=== PATIENT | male | born 1955 | race Caucasian/White ===

== ENCOUNTER 2020-02-24 21:40 | Inpatient (IN) ==
[2020-02-24] MEDS ORDERED: Ondansetron 4 MG/2 ML VIAL IVP PRN (23:59)
[2020-02-24] MEDS ORDERED: Naloxone 0.4 MG/ML INJ IVP PRN (23:59)
[2020-02-24] MEDS ORDERED: Acetaminophen 325 MG TABLET PO PRN (23:59)
[2020-02-25] MEDS ORDERED: D5% in Water 1,000 ML IVC PRN (00:53)
[2020-02-25] MEDS ORDERED: *HR* Dextrose 50 % in Water (Vial) 50 ML VIAL IVP PRN (00:53)
[2020-02-25] MEDS ORDERED: Dextrose Gel 15 GM/37.5 ML TUBE PO PRN ×2 (00:53)
[2020-02-25] MEDS: Insulin LISPRO 300 UNITS/3 ML VIAL SUBQ SCH ×4 (02:27→20:26)
[2020-02-25] MEDS ORDERED: 0.9 % Sodium Chloride 1,000 ML IVC ONE (05:46)
[2020-02-25] MEDS ORDERED: Insulin LISPRO 300 UNITS/3 ML VIAL SUBQ SCH (06:00)
[2020-02-25] MEDS: Cefepime HCl 2,000 MG in Water for inj. (sterile) 20 ML IVP SCH ×2 (06:34→17:55)
[2020-02-25 07:23] LABS: Eosinophils # 0.1 K/mcL (0.0-0.6); Eosinophils % 2.6 %; Hematocrit 25.9 % (37.5-50.1); Hemoglobin 7.8 g/dL (12.9-16.9); Immature Granulocytes % 0.6 % (0-4); Lymphocytes # 0.6 K/mcL (0.6-4.6); Lymphocytes % 17.2 %; Mean Corpuscular HGB Conc 30.1 g/dL (31.6-35.5); Mean Corpuscular Hemoglobin 23.9 pg (28.0-33.3); Mean Corpuscular Volume 79.2 fL (83.0-100.0); Mean Platelet Volume 9.4 fL (9.4-12.4); Monocytes # 0.4 K/mcL (0.0-1.3); Monocytes % 10.2 %; Neutrophils # 2.4 K/mcL (1.6-8.9); Platelet Count 159 K/mcL (140-400); Red Blood Count 3.27 M/mcL (4.19-5.50); Red Cell Distribution Width 14.9 % (11.5-14.5); Segmented Neutrophils % 69.4 %; White Blood Count 3.4 K/mcL (4.3-11.1)
[2020-02-25 07:41] LABS: Albumin 2.7 g/dL (3.5-5.7); Albumin/Globulin Ratio 0.9 (1.1-2.2); Bilirubin,Total 0.8 mg/dL (0.3-1.0); Globulin 2.9 g/dL (2.4-3.5); Magnesium 1.5 mg/dL (1.6-2.6); Phosphorous 3.5 mg/dL (2.7-4.5); Total Protein 5.6 g/dL (6.4-8.9)
[2020-02-25] MEDS: Vancomycin 1,250 MG/262.5 ML IV.SOLN IVPB SCH (10:54)
[2020-02-25] MEDS ORDERED: Fluconazole 400 MG/200 ML 400 MG/200 ML BAG IVPB SCH (21:00)
[2020-02-26] MEDS ORDERED: ROPINIROLE HCL 2 MG PO SCH (04:19)
[2020-02-26] MEDS: rOPINIRole 1 MG TABLET PO SCH ×2 (04:24→21:45)
[2020-02-26] MEDS: Cefepime HCl 2,000 MG in Water for inj. (sterile) 20 ML IVP SCH ×2 (05:46→18:05)
[2020-02-26] MEDS: Insulin LISPRO 300 UNITS/3 ML VIAL SUBQ SCH ×4 (08:14→21:51)
[2020-02-26 08:52] LABS: Basophils % 0.2 %; Eosinophils # 0.2 K/mcL (0.0-0.6); Eosinophils % 3.5 %; Hematocrit 27.6 % (37.5-50.1); Hemoglobin 8.3 g/dL (12.9-16.9); Immature Granulocytes % 0.7 % (0-4); Lymphocytes # 0.5 K/mcL (0.6-4.6); Mean Corpuscular HGB Conc 30.1 g/dL (31.6-35.5); Mean Corpuscular Hemoglobin 23.7 pg (28.0-33.3); Mean Corpuscular Volume 78.9 fL (83.0-100.0); Mean Platelet Volume 10.1 fL (9.4-12.4); Monocytes # 0.3 K/mcL (0.0-1.3); Neutrophils # 3.3 K/mcL (1.6-8.9); Platelet Count 213 K/mcL (140-400); Red Cell Distribution Width 15.1 % (11.5-14.5); Segmented Neutrophils % 77.6 %; White Blood Count 4.3 K/mcL (4.3-11.1)
[2020-02-26 09:11] LABS: BUN/Creatinine Ratio 20 (6-26); Blood Urea Nitrogen 26 mg/dL (8-23); Calcium 8.2 mg/dL (8.6-10.3); Carbon Dioxide 23 mEq/L (23-29); Chloride 102 mEq/L (98-107); Glucose 206 mg/dL (70-105); Magnesium 1.6 mg/dL (1.6-2.6); Osmolality,Calculated 289 (280-300); Phosphorous 2.8 mg/dL (2.7-4.5); Sodium 134 mEq/L (136-145); Vancomycin,Random 9 mcg/mL; eGFR For African Americans > 60 (> 60); eGFR For Non-African Americans 55 (> 60)
[2020-02-26] MEDS: amLODIPine 5 MG TABLET PO SCH (09:41)
[2020-02-26] MEDS: Gabapentin 300 MG CAPSULE PO SCH (09:41)
[2020-02-26] MEDS: Aspirin Enteric Coated 81 MG Tablet PO SCH (09:41)
[2020-02-26] MEDS: Apixaban 5 MG TABLET PO SCH ×2 (09:41→21:46)
[2020-02-26] MEDS: PARoxetine 20 MG TABLET PO SCH (09:41)
[2020-02-26] MEDS ORDERED: *HR* Alteplase (Cathflo) 2 MG VIAL IVP ONE (10:28)
[2020-02-26] MEDS: Vancomycin 1,250 MG/262.5 ML IV.SOLN IVPB SCH (12:14)
[2020-02-26] MEDS: Micafungin 100 MG in 0.9 % Sodium Chloride Mini Bag 100 ML IVPB SCH (16:54)
[2020-02-26] MEDS: Insulin DETEMIR 100 UNIT/ML X5UNITS SUBQ SCH (21:51)
[2020-02-27 01:57] LABS: Basophils % 0.5 %; Eosinophils # 0.2 K/mcL (0.0-0.6); Hematocrit 28.6 % (37.5-50.1); Immature Granulocytes % 1.1 % (0-4); Lymphocytes # 0.6 K/mcL (0.6-4.6); Lymphocytes % 14.2 %; Mean Corpuscular HGB Conc 31.5 g/dL (31.6-35.5); Mean Corpuscular Hemoglobin 24.9 pg (28.0-33.3); Mean Platelet Volume 9.4 fL (9.4-12.4); Monocytes # 0.2 K/mcL (0.0-1.3); Neutrophils # 3.3 K/mcL (1.6-8.9); Platelet Count 241 K/mcL (140-400); Red Blood Count 3.62 M/mcL (4.19-5.50); Segmented Neutrophils % 74.2 %; White Blood Count 4.4 K/mcL (4.3-11.1)
[2020-02-27 02:21] LABS: BUN/Creatinine Ratio 17 (6-26); Blood Urea Nitrogen 21 mg/dL (8-23); Calcium 8.4 mg/dL (8.6-10.3); Carbon Dioxide 27 mEq/L (23-29); Chloride 101 mEq/L (98-107); Glucose 170 mg/dL (70-105); Magnesium 1.7 mg/dL (1.6-2.6); Osmolality,Calculated 287 (280-300); Phosphorous 2.8 mg/dL (2.7-4.5); Potassium 3.6 mEq/L (3.5-5.1); Sodium 135 mEq/L (136-145); eGFR For African Americans > 60 (> 60); eGFR For Non-African Americans 59 (> 60)
[2020-02-27] MEDS: Cefepime HCl 2,000 MG in Water for inj. (sterile) 20 ML IVP SCH (06:35)
[2020-02-27] MEDS: Aspirin Enteric Coated 81 MG Tablet PO SCH (09:56)
[2020-02-27] MEDS: Apixaban 5 MG TABLET PO SCH ×2 (09:56→23:11)
[2020-02-27] MEDS: Gabapentin 300 MG CAPSULE PO SCH (09:56)
[2020-02-27] MEDS: amLODIPine 5 MG TABLET PO SCH (09:56)
[2020-02-27] MEDS: PARoxetine 20 MG TABLET PO SCH (10:00)
[2020-02-27] MEDS: Insulin DETEMIR 100 UNIT/ML X5UNITS SUBQ SCH ×2 (10:00→23:10)
[2020-02-27] MEDS: rOPINIRole 1 MG TABLET PO SCH ×2 (10:00→23:11)
[2020-02-27] MEDS: DAPTOmycin 500 MG in 0.9 % Sodium Chloride 100 ML IVPB SCH (12:56)
[2020-02-27] MEDS: Insulin LISPRO 300 UNITS/3 ML VIAL SUBQ SCH ×4 (13:05→23:13)
[2020-02-27] MEDS: levoFLOXacin 750 MG/150 ML 750 MG/150 ML BAG IVPB SCH (15:56)
[2020-02-27] MEDS: Micafungin 100 MG in 0.9 % Sodium Chloride Mini Bag 100 ML IVPB SCH (17:53)
[2020-02-28 02:33] LABS: Hematocrit 32.7 % (37.5-50.1); Hemoglobin 9.9 g/dL (12.9-16.9)
[2020-02-28 02:54] LABS: BUN/Creatinine Ratio 14 (6-26); Blood Urea Nitrogen 17 mg/dL (8-23); Calcium 8.6 mg/dL (8.6-10.3); Carbon Dioxide 27 mEq/L (23-29); Chloride 99 mEq/L (98-107); Glucose 204 mg/dL (70-105); Magnesium 1.6 mg/dL (1.6-2.6); Osmolality,Calculated 283 (280-300); Phosphorous 3.4 mg/dL (2.7-4.5); Potassium 3.9 mEq/L (3.5-5.1); Sodium 133 mEq/L (136-145); eGFR For African Americans > 60 (> 60); eGFR For Non-African Americans > 60 (> 60)
[2020-02-28] MEDS: amLODIPine 5 MG TABLET PO SCH (08:14)
[2020-02-28] MEDS: PARoxetine 20 MG TABLET PO SCH (08:14)
[2020-02-28] MEDS: Apixaban 5 MG TABLET PO SCH (08:15)
[2020-02-28] MEDS: levoFLOXacin 750 MG/150 ML 750 MG/150 ML BAG IVPB SCH (08:15)
[2020-02-28] MEDS: Gabapentin 300 MG CAPSULE PO SCH (08:15)
[2020-02-28] MEDS: Aspirin Enteric Coated 81 MG Tablet PO SCH (08:15)
[2020-02-28] MEDS: rOPINIRole 1 MG TABLET PO SCH ×2 (08:15→21:08)
[2020-02-28] MEDS: Insulin DETEMIR 100 UNIT/ML X5UNITS SUBQ SCH ×2 (08:20→21:08)
[2020-02-28] MEDS: Insulin LISPRO 300 UNITS/3 ML VIAL SUBQ SCH ×4 (08:22→21:07)
[2020-02-28 10:53] LABS: Estimated Average Glucose 258 mg/dl; Hemoglobin A1C 10.6 %
[2020-02-28] MEDS ORDERED: Gadolinium Contrast Agent (WT Based) IV PRN (11:39)
[2020-02-28] MEDS: DAPTOmycin 500 MG in 0.9 % Sodium Chloride 100 ML IVPB SCH (12:38)
[2020-02-28] MEDS: Micafungin 100 MG in 0.9 % Sodium Chloride Mini Bag 100 ML IVPB SCH (14:56)
[2020-02-28] MEDS ORDERED: Isovue-370 500 ML BOTTLE IVP ONE (15:32)
[2020-02-29 04:59] LABS: Basophils # 0.1 K/mcL (0.0-0.2); Basophils % 0.6 %; Eosinophils # 0.3 K/mcL (0.0-0.6); Eosinophils % 3.8 %; Hematocrit 32.8 % (37.5-50.1); Hemoglobin 10.3 g/dL (12.9-16.9); Immature Granulocytes % 3.8 % (0-4); Lymphocytes # 1.3 K/mcL (0.6-4.6); Lymphocytes % 16.6 %; Mean Corpuscular HGB Conc 31.4 g/dL (31.6-35.5); Mean Corpuscular Hemoglobin 24.8 pg (28.0-33.3); Monocytes # 0.4 K/mcL (0.0-1.3); Monocytes % 5.3 %; Neutrophils # 5.4 K/mcL (1.6-8.9); Nucleated Red Blood Cells 0.6 /100 WBC (0); Platelet Count 355 K/mcL (140-400); Red Blood Count 4.15 M/mcL (4.19-5.50); Segmented Neutrophils % 69.9 %
[2020-02-29 05:01] LABS: White Blood Count 7.7 K/mcL (4.3-11.1)
[2020-02-29 05:30] LABS: % Iron Saturation 15 % (20-55); BUN/Creatinine Ratio 14 (6-26); Blood Urea Nitrogen 18 mg/dL (8-23); Calcium 8.7 mg/dL (8.6-10.3); Carbon Dioxide 29 mEq/L (23-29); Chloride 100 mEq/L (98-107); Glucose 190 mg/dL (70-105); Iron 41 mcg/dL (65-175); Magnesium 1.6 mg/dL (1.6-2.6); Osmolality,Calculated 291 (280-300); Potassium 3.8 mEq/L (3.5-5.1); Sodium 137 mEq/L (136-145); Transferrin 193 mg/dL (203-362); eGFR For African Americans > 60 (> 60); eGFR For Non-African Americans 55 (> 60)
[2020-02-29 05:36] LABS: Ferritin 111 ng/mL (20-250)
[2020-02-29 05:40] LABS: Folate 6.2 ng/mL (3.0-16.0)
[2020-02-29] MEDS: Insulin DETEMIR 100 UNIT/ML X5UNITS SUBQ SCH ×2 (07:53→19:51)
[2020-02-29] MEDS: PARoxetine 20 MG TABLET PO SCH (07:54)
[2020-02-29] MEDS: rOPINIRole 1 MG TABLET PO SCH ×2 (07:54→19:51)
[2020-02-29] MEDS: Insulin LISPRO 300 UNITS/3 ML VIAL SUBQ SCH ×3 (07:54→20:07)
[2020-02-29] MEDS: Aspirin Enteric Coated 81 MG Tablet PO SCH (07:54)
[2020-02-29] MEDS: amLODIPine 5 MG TABLET PO SCH (07:54)
[2020-02-29] MEDS: Gabapentin 300 MG CAPSULE PO SCH (07:54)
[2020-02-29] MEDS: levoFLOXacin 750 MG/150 ML 750 MG/150 ML BAG IVPB SCH (07:58)
[2020-02-29] MEDS ORDERED: Iron Sucrose Complex 250 MG in 0.9 % Sodium Chloride 250 ML IVPB ONE (08:00)
[2020-02-29] MEDS: DAPTOmycin 500 MG in 0.9 % Sodium Chloride 100 ML IVPB SCH (11:18)
[2020-02-29] MEDS ORDERED: ROPIVACAINE/PF/NS 0.25% 1 EACH SYRINGE INTRAART ONE (13:45)
[2020-02-29] MEDS ORDERED: Lidocaine -MPF 2% 2 ML VIAL ONE (14:49)
[2020-02-29] MEDS ORDERED: *HR* Propofol 200 MG/20 ML VIAL IVP ONE (14:49)
[2020-02-29] MEDS ORDERED: Dextrose Gel 15 GM/37.5 ML TUBE PO PRN ×2 (16:56)
[2020-02-29] MEDS ORDERED: D5% in Water 1,000 ML IVC PRN (16:56)
[2020-02-29] MEDS ORDERED: Ondansetron 4 MG/2 ML VIAL IVP PRN (16:56)
[2020-02-29] MEDS ORDERED: Naloxone 0.4 MG/ML INJ IVP PRN (16:56)
[2020-02-29] MEDS ORDERED: *HR* Dextrose 50 % in Water (Vial) 50 ML VIAL IVP PRN (16:56)
[2020-02-29] MEDS: Micafungin 100 MG in 0.9 % Sodium Chloride Mini Bag 100 ML IVPB SCH (18:08)
[2020-02-29] MEDS: Lactobacillus 1 EACH CAP.SPRINK PO SCH (19:51)
[2020-02-29] MEDS: Sennosides/Docusate Sodium TABLET PO SCH (19:51)
[2020-03-01 04:57] LABS: Basophils % 0.4 %; Eosinophils # 0.2 K/mcL (0.0-0.6); Eosinophils % 2.8 %; Hematocrit 33.5 % (37.5-50.1); Hemoglobin 10.2 g/dL (12.9-16.9); Immature Granulocytes % 3.2 % (0-4); Lymphocytes # 1.3 K/mcL (0.6-4.6); Lymphocytes % 18.7 %; Mean Corpuscular HGB Conc 30.4 g/dL (31.6-35.5); Mean Corpuscular Hemoglobin 24.3 pg (28.0-33.3); Mean Corpuscular Volume 79.8 fL (83.0-100.0); Monocytes # 0.4 K/mcL (0.0-1.3); Monocytes % 5.7 %; Neutrophils # 4.7 K/mcL (1.6-8.9); Platelet Count 321 K/mcL (140-400); Red Cell Distribution Width 15.6 % (11.5-14.5); Segmented Neutrophils % 69.2 %; White Blood Count 6.8 K/mcL (4.3-11.1)
[2020-03-01 05:15] LABS: BUN/Creatinine Ratio 13 (6-26); Blood Urea Nitrogen 17 mg/dL (8-23); Calcium 8.8 mg/dL (8.6-10.3); Carbon Dioxide 28 mEq/L (23-29); Chloride 102 mEq/L (98-107); Glucose 193 mg/dL (70-105); Magnesium 1.7 mg/dL (1.6-2.6); Osmolality,Calculated 289 (280-300); Sodium 136 mEq/L (136-145); eGFR For African Americans > 60 (> 60); eGFR For Non-African Americans 57 (> 60)
[2020-03-01] MEDS: polyethylene glycoL 3350 17 GM POWD.PACK PO SCH (08:03)
[2020-03-01] MEDS: Acetaminophen 325 MG TABLET PO PRN (08:03)
[2020-03-01] MEDS: levoFLOXacin 750 MG/150 ML 750 MG/150 ML BAG IVPB SCH (08:03)
[2020-03-01] MEDS: Insulin DETEMIR 100 UNIT/ML X5UNITS SUBQ SCH ×2 (08:04→20:33)
[2020-03-01] MEDS: Aspirin Enteric Coated 81 MG Tablet PO SCH (08:05)
[2020-03-01] MEDS: amLODIPine 5 MG TABLET PO SCH (08:05)
[2020-03-01] MEDS: rOPINIRole 1 MG TABLET PO SCH ×2 (08:05→20:33)
[2020-03-01] MEDS: Lactobacillus 1 EACH CAP.SPRINK PO SCH ×2 (08:05→20:33)
[2020-03-01] MEDS: PARoxetine 20 MG TABLET PO SCH (08:05)
[2020-03-01] MEDS: Sennosides/Docusate Sodium TABLET PO SCH ×2 (08:06→20:32)
[2020-03-01] MEDS: Insulin LISPRO 300 UNITS/3 ML VIAL SUBQ SCH ×4 (08:06→20:33)
[2020-03-01] MEDS: Gabapentin 300 MG CAPSULE PO SCH (08:06)
[2020-03-01] MEDS: DAPTOmycin 500 MG in 0.9 % Sodium Chloride 100 ML IVPB SCH (11:49)
[2020-03-01] MEDS: Micafungin 100 MG in 0.9 % Sodium Chloride Mini Bag 100 ML IVPB SCH (16:45)
[2020-03-01 17:00] LABS: Hepatitis B Surface Antibody 3.34 mIU/mL
[2020-03-01 17:40] LABS: Hepatitis C Virus Antibody Nonreactive (Nonreactive)
[2020-03-02] MEDS: Acetaminophen 325 MG TABLET PO PRN (00:57)
[2020-03-02 06:47] LABS: Basophils % 0.4 %; Eosinophils # 0.3 K/mcL (0.0-0.6); Eosinophils % 4.1 %; Hematocrit 32.8 % (37.5-50.1); Hemoglobin 10.1 g/dL (12.9-16.9); Immature Granulocytes % 2.6 % (0-4); Lymphocytes # 1.4 K/mcL (0.6-4.6); Mean Corpuscular HGB Conc 30.8 g/dL (31.6-35.5); Mean Corpuscular Hemoglobin 24.5 pg (28.0-33.3); Mean Corpuscular Volume 79.6 fL (83.0-100.0); Mean Platelet Volume 9.3 fL (9.4-12.4); Monocytes # 0.4 K/mcL (0.0-1.3); Monocytes % 5.4 %; Neutrophils # 4.6 K/mcL (1.6-8.9); Platelet Count 333 K/mcL (140-400); Red Blood Count 4.12 M/mcL (4.19-5.50); Red Cell Distribution Width 15.9 % (11.5-14.5); Segmented Neutrophils % 66.5 %; White Blood Count 6.9 K/mcL (4.3-11.1)
[2020-03-02 07:07] LABS: BUN/Creatinine Ratio 17 (6-26); Blood Urea Nitrogen 22 mg/dL (8-23); Calcium 8.9 mg/dL (8.6-10.3); Carbon Dioxide 28 mEq/L (23-29); Chloride 103 mEq/L (98-107); Glucose 106 mg/dL (70-105); Magnesium 1.7 mg/dL (1.6-2.6); Osmolality,Calculated 288 (280-300); Potassium 4.1 mEq/L (3.5-5.1); Sodium 137 mEq/L (136-145); eGFR For African Americans > 60 (> 60); eGFR For Non-African Americans 54 (> 60)
[2020-03-02] MEDS: Aspirin Enteric Coated 81 MG Tablet PO SCH (09:03)
[2020-03-02] MEDS: Gabapentin 300 MG CAPSULE PO SCH (09:03)
[2020-03-02] MEDS: rOPINIRole 1 MG TABLET PO SCH ×2 (09:03→21:04)
[2020-03-02] MEDS: Lactobacillus 1 EACH CAP.SPRINK PO SCH ×2 (09:03→21:04)
[2020-03-02] MEDS: levoFLOXacin 750 MG/150 ML 750 MG/150 ML BAG IVPB SCH (09:03)
[2020-03-02] MEDS: amLODIPine 5 MG TABLET PO SCH (09:04)
[2020-03-02] MEDS: Sennosides/Docusate Sodium TABLET PO SCH (09:04)
[2020-03-02] MEDS: polyethylene glycoL 3350 17 GM POWD.PACK PO SCH (09:04)
[2020-03-02] MEDS: PARoxetine 20 MG TABLET PO SCH (09:04)
[2020-03-02] MEDS: Insulin LISPRO 300 UNITS/3 ML VIAL SUBQ SCH ×4 (09:05→21:04)
[2020-03-02] MEDS: Insulin DETEMIR 100 UNIT/ML X5UNITS SUBQ SCH ×2 (09:21→21:04)
[2020-03-02] MEDS: DAPTOmycin 500 MG in 0.9 % Sodium Chloride 100 ML IVPB SCH (12:46)
[2020-03-02] MEDS: Micafungin 100 MG in 0.9 % Sodium Chloride Mini Bag 100 ML IVPB SCH (17:35)
[2020-03-03] MEDS: Insulin LISPRO 300 UNITS/3 ML VIAL SUBQ SCH ×4 (08:26→21:18)
[2020-03-03] MEDS: rOPINIRole 1 MG TABLET PO SCH ×2 (08:26→21:17)
[2020-03-03] MEDS: Aspirin Enteric Coated 81 MG Tablet PO SCH (08:26)
[2020-03-03] MEDS: Lactobacillus 1 EACH CAP.SPRINK PO SCH ×2 (08:26→21:17)
[2020-03-03] MEDS: amLODIPine 5 MG TABLET PO SCH (08:26)
[2020-03-03] MEDS: Gabapentin 300 MG CAPSULE PO SCH (08:26)
[2020-03-03] MEDS: PARoxetine 20 MG TABLET PO SCH (08:27)
[2020-03-03] MEDS: Insulin DETEMIR 100 UNIT/ML X5UNITS SUBQ SCH (08:27)
[2020-03-03] MEDS: levoFLOXacin 750 MG/150 ML 750 MG/150 ML BAG IVPB SCH (08:27)
[2020-03-03 09:47] LABS: Basophils % 0.5 %; Eosinophils # 0.3 K/mcL (0.0-0.6); Eosinophils % 3.6 %; Hematocrit 36.2 % (37.5-50.1); Hemoglobin 11.1 g/dL (12.9-16.9); Immature Granulocytes % 1.9 % (0-4); Lymphocytes # 1.5 K/mcL (0.6-4.6); Lymphocytes % 18.8 %; Mean Corpuscular HGB Conc 30.7 g/dL (31.6-35.5); Mean Corpuscular Hemoglobin 24.6 pg (28.0-33.3); Mean Corpuscular Volume 80.1 fL (83.0-100.0); Mean Platelet Volume 8.9 fL (9.4-12.4); Monocytes # 0.3 K/mcL (0.0-1.3); Monocytes % 3.7 %; Neutrophils # 5.6 K/mcL (1.6-8.9); Platelet Count 355 K/mcL (140-400); Red Blood Count 4.52 M/mcL (4.19-5.50); Red Cell Distribution Width 16.2 % (11.5-14.5); Segmented Neutrophils % 71.5 %; White Blood Count 7.9 K/mcL (4.3-11.1)
[2020-03-03 09:58] LABS: Calcium 8.9 mg/dL (8.6-10.3); Magnesium 1.7 mg/dL (1.6-2.6); Potassium 4.5 mEq/L (3.5-5.1)
[2020-03-03] MEDS: DAPTOmycin 500 MG in 0.9 % Sodium Chloride 100 ML IVPB SCH (16:11)
[2020-03-03] MEDS: polyethylene glycoL 3350 17 GM POWD.PACK PO SCH (16:11)
[2020-03-03] MEDS: Micafungin 100 MG in 0.9 % Sodium Chloride Mini Bag 100 ML IVPB SCH (17:38)
[2020-03-04 05:19] LABS: Basophils % 0.5 %; Eosinophils # 0.3 K/mcL (0.0-0.6); Eosinophils % 3.8 %; Hematocrit 37.2 % (37.5-50.1); Hemoglobin 11.5 g/dL (12.9-16.9); Immature Granulocytes % 2.3 % (0-4); Lymphocytes # 1.5 K/mcL (0.6-4.6); Lymphocytes % 20.7 %; Mean Corpuscular HGB Conc 30.9 g/dL (31.6-35.5); Mean Corpuscular Hemoglobin 24.7 pg (28.0-33.3); Monocytes # 0.4 K/mcL (0.0-1.3); Monocytes % 5.2 %; Neutrophils # 4.9 K/mcL (1.6-8.9); Platelet Count 334 K/mcL (140-400); Red Blood Count 4.65 M/mcL (4.19-5.50); Red Cell Distribution Width 16.4 % (11.5-14.5); Segmented Neutrophils % 67.5 %; White Blood Count 7.3 K/mcL (4.3-11.1)
[2020-03-04 05:37] LABS: Calcium 9.3 mg/dL (8.6-10.3); Magnesium 1.8 mg/dL (1.6-2.6); Potassium 4.8 mEq/L (3.5-5.1)
[2020-03-04] MEDS: polyethylene glycoL 3350 17 GM POWD.PACK PO SCH (08:14)
[2020-03-04] MEDS: 0.9 % Sodium Chloride 1,000 ML IVC SCH (08:14)
[2020-03-04] MEDS: levoFLOXacin 750 MG/150 ML 750 MG/150 ML BAG IVPB SCH (08:14)
[2020-03-04] MEDS: amLODIPine 5 MG TABLET PO SCH (08:15)
[2020-03-04] MEDS: Gabapentin 300 MG CAPSULE PO SCH (08:15)
[2020-03-04] MEDS: PARoxetine 20 MG TABLET PO SCH (08:15)
[2020-03-04] MEDS: Lactobacillus 1 EACH CAP.SPRINK PO SCH ×2 (08:15→21:11)
[2020-03-04] MEDS: Insulin LISPRO 300 UNITS/3 ML VIAL SUBQ SCH ×4 (08:15→21:11)
[2020-03-04] MEDS: Aspirin Enteric Coated 81 MG Tablet PO SCH (08:15)
[2020-03-04] MEDS: rOPINIRole 1 MG TABLET PO SCH ×2 (08:15→21:11)
[2020-03-04] MEDS ORDERED: Lactulose Oral Soln 20 GM/30 ML UDC PO ONE (08:20)
[2020-03-04] MEDS: Insulin DETEMIR 100 UNIT/ML X5UNITS SUBQ SCH (08:21)
[2020-03-04] MEDS ORDERED: Insulin DETEMIR 100 UNIT/ML X5UNITS SUBQ SCH (08:30)
[2020-03-04] MEDS ORDERED: Lidocaine -MPF 1% 5 ML AMPUL INFILT ONE (09:41)
[2020-03-04] MEDS: DAPTOmycin 500 MG in 0.9 % Sodium Chloride 100 ML IVPB SCH (13:59)
[2020-03-04] MEDS: Micafungin 100 MG in 0.9 % Sodium Chloride Mini Bag 100 ML IVPB SCH (17:12)
[2020-03-05 04:35] LABS: Basophils % 0.6 %; Eosinophils # 0.2 K/mcL (0.0-0.6); Eosinophils % 3.3 %; Hematocrit 35.2 % (37.5-50.1); Hemoglobin 10.8 g/dL (12.9-16.9); Immature Granulocytes % 1.5 % (0-4); Lymphocytes # 1.5 K/mcL (0.6-4.6); Lymphocytes % 22.8 %; Mean Corpuscular HGB Conc 30.7 g/dL (31.6-35.5); Mean Corpuscular Hemoglobin 24.8 pg (28.0-33.3); Mean Corpuscular Volume 80.7 fL (83.0-100.0); Mean Platelet Volume 9.2 fL (9.4-12.4); Monocytes # 0.4 K/mcL (0.0-1.3); Monocytes % 5.4 %; Neutrophils # 4.5 K/mcL (1.6-8.9); Platelet Count 299 K/mcL (140-400); Red Blood Count 4.36 M/mcL (4.19-5.50); Red Cell Distribution Width 16.1 % (11.5-14.5); Segmented Neutrophils % 66.4 %; White Blood Count 6.7 K/mcL (4.3-11.1)
[2020-03-05 04:51] LABS: Calcium 8.8 mg/dL (8.6-10.3); Magnesium 1.7 mg/dL (1.6-2.6); Potassium 4.8 mEq/L (3.5-5.1)
[2020-03-05] MEDS: levoFLOXacin 750 MG/150 ML 750 MG/150 ML BAG IVPB SCH (10:17)
[2020-03-05] MEDS: Insulin DETEMIR 100 UNIT/ML X5UNITS SUBQ SCH (10:17)
[2020-03-05] MEDS: polyethylene glycoL 3350 17 GM POWD.PACK PO SCH (10:17)
[2020-03-05] MEDS: Aspirin Enteric Coated 81 MG Tablet PO SCH (10:18)
[2020-03-05] MEDS: Lactobacillus 1 EACH CAP.SPRINK PO SCH ×2 (10:18→20:04)
[2020-03-05] MEDS: Gabapentin 300 MG CAPSULE PO SCH (10:18)
[2020-03-05] MEDS: amLODIPine 5 MG TABLET PO SCH (10:18)
[2020-03-05] MEDS: rOPINIRole 1 MG TABLET PO SCH ×2 (10:18→20:03)
[2020-03-05] MEDS: PARoxetine 20 MG TABLET PO SCH (10:18)
[2020-03-05] MEDS: Insulin LISPRO 300 UNITS/3 ML VIAL SUBQ SCH ×4 (10:18→20:04)
[2020-03-05] MEDS: DAPTOmycin 500 MG in 0.9 % Sodium Chloride 100 ML IVPB SCH (12:30)
[2020-03-05] MEDS: Micafungin 100 MG in 0.9 % Sodium Chloride Mini Bag 100 ML IVPB SCH (18:16)
[2020-03-06 03:05] LABS: Basophils % 0.5 %; Eosinophils # 0.3 K/mcL (0.0-0.6); Eosinophils % 3.1 %; Lymphocytes # 1.6 K/mcL (0.6-4.6); Lymphocytes % 19.3 %; Mean Corpuscular HGB Conc 30.6 g/dL (31.6-35.5); Mean Corpuscular Hemoglobin 24.1 pg (28.0-33.3); Mean Corpuscular Volume 78.9 fL (83.0-100.0); Mean Platelet Volume 8.8 fL (9.4-12.4); Monocytes # 0.4 K/mcL (0.0-1.3); Monocytes % 5.2 %; Neutrophils # 5.9 K/mcL (1.6-8.9); Platelet Count 284 K/mcL (140-400); Red Blood Count 4.56 M/mcL (4.19-5.50); Red Cell Distribution Width 16.2 % (11.5-14.5); Segmented Neutrophils % 70.9 %; White Blood Count 8.3 K/mcL (4.3-11.1)
[2020-03-06 03:26] LABS: BUN/Creatinine Ratio 28 (6-26); Blood Urea Nitrogen 39 mg/dL (8-23); Calcium 9.2 mg/dL (8.6-10.3); Carbon Dioxide 27 mEq/L (23-29); Chloride 103 mEq/L (98-107); Glucose 171 mg/dL (70-105); Magnesium 1.6 mg/dL (1.6-2.6); Osmolality,Calculated 291 (280-300); Sodium 134 mEq/L (136-145); eGFR For African Americans > 60 (> 60); eGFR For Non-African Americans 51 (> 60)
[2020-03-06] MEDS: Insulin LISPRO 300 UNITS/3 ML VIAL SUBQ SCH ×4 (07:41→21:08)
[2020-03-06] MEDS: rOPINIRole 1 MG TABLET PO SCH ×2 (08:12→20:58)
[2020-03-06] MEDS: Aspirin Enteric Coated 81 MG Tablet PO SCH (08:12)
[2020-03-06] MEDS: Lactobacillus 1 EACH CAP.SPRINK PO SCH ×2 (08:12→20:57)
[2020-03-06] MEDS: Gabapentin 300 MG CAPSULE PO SCH (08:12)
[2020-03-06] MEDS: amLODIPine 5 MG TABLET PO SCH (08:13)
[2020-03-06] MEDS: PARoxetine 20 MG TABLET PO SCH (08:13)
[2020-03-06] MEDS: levoFLOXacin 750 MG/150 ML 750 MG/150 ML BAG IVPB SCH (08:13)
[2020-03-06] MEDS: polyethylene glycoL 3350 17 GM POWD.PACK PO SCH (08:13)
[2020-03-06] MEDS: Insulin DETEMIR 100 UNIT/ML X5UNITS SUBQ SCH (09:02)
[2020-03-06] MEDS ORDERED: *HR* Heparin 10,000 UNIT/10 ML VIAL ONE (11:18)
[2020-03-06] MEDS ORDERED: Isovue-250 100 ML INFUS..BTL ONE (11:18)
[2020-03-06] MEDS ORDERED: 0.9 % Sodium Chloride 1,000 ML ONE ×2 (11:18→11:35)
[2020-03-06] MEDS ORDERED: *HR* Midazolam HCl 2 MG/2 ML VIAL ONE (11:21)
[2020-03-06] MEDS: DAPTOmycin 500 MG in 0.9 % Sodium Chloride 100 ML IVPB SCH (13:13)
[2020-03-06] MEDS: 0.9 % Sodium Chloride 1,000 ML IVC SCH (13:13)
[2020-03-06] MEDS ORDERED: *HR* HYDROcodone/Acet 5/325 mg TABLET PO PRN (13:19)
[2020-03-06] MEDS ORDERED: *HR* OxyCODONE Immed Rel 5 MG TABLET PO PRN (13:19)
[2020-03-06] MEDS: Acetaminophen 325 MG TABLET PO PRN (15:47)
[2020-03-06] MEDS: Micafungin 100 MG in 0.9 % Sodium Chloride Mini Bag 100 ML IVPB SCH (16:56)
[2020-03-07 03:04] LABS: Basophils % 0.5 %; Eosinophils # 0.3 K/mcL (0.0-0.6); Eosinophils % 4.4 %; Hematocrit 35.2 % (37.5-50.1); Hemoglobin 10.7 g/dL (12.9-16.9); Immature Granulocytes % 0.6 % (0-4); Lymphocytes # 1.3 K/mcL (0.6-4.6); Lymphocytes % 20.7 %; Mean Corpuscular HGB Conc 30.4 g/dL (31.6-35.5); Mean Corpuscular Volume 79.1 fL (83.0-100.0); Mean Platelet Volume 9.1 fL (9.4-12.4); Monocytes # 0.3 K/mcL (0.0-1.3); Monocytes % 4.2 %; Neutrophils # 4.5 K/mcL (1.6-8.9); Platelet Count 252 K/mcL (140-400); Red Blood Count 4.45 M/mcL (4.19-5.50); Red Cell Distribution Width 16.2 % (11.5-14.5); Segmented Neutrophils % 69.6 %; White Blood Count 6.4 K/mcL (4.3-11.1)
[2020-03-07 03:26] LABS: BUN/Creatinine Ratio 23 (6-26); Blood Urea Nitrogen 32 mg/dL (8-23); Calcium 9.1 mg/dL (8.6-10.3); Carbon Dioxide 27 mEq/L (23-29); Chloride 105 mEq/L (98-107); Glucose 164 mg/dL (70-105); Magnesium 1.7 mg/dL (1.6-2.6); Osmolality,Calculated 293 (280-300); Potassium 4.7 mEq/L (3.5-5.1); Sodium 136 mEq/L (136-145); eGFR For African Americans > 60 (> 60); eGFR For Non-African Americans 51 (> 60)
[2020-03-07] MEDS: Lactobacillus 1 EACH CAP.SPRINK PO SCH ×2 (08:28→21:38)
[2020-03-07] MEDS: Aspirin Enteric Coated 81 MG Tablet PO SCH (08:28)
[2020-03-07] MEDS: PARoxetine 20 MG TABLET PO SCH (08:28)
[2020-03-07] MEDS: rOPINIRole 1 MG TABLET PO SCH ×2 (08:28→21:38)
[2020-03-07] MEDS: polyethylene glycoL 3350 17 GM POWD.PACK PO SCH (08:29)
[2020-03-07] MEDS: Gabapentin 300 MG CAPSULE PO SCH (08:29)
[2020-03-07] MEDS: amLODIPine 5 MG TABLET PO SCH (08:29)
[2020-03-07] MEDS: Insulin LISPRO 300 UNITS/3 ML VIAL SUBQ SCH ×4 (08:29→21:40)
[2020-03-07] MEDS: levoFLOXacin 750 MG/150 ML 750 MG/150 ML BAG IVPB SCH (08:30)
[2020-03-07] MEDS: Insulin DETEMIR 100 UNIT/ML X5UNITS SUBQ SCH (08:40)
[2020-03-07] MEDS: DAPTOmycin 500 MG in 0.9 % Sodium Chloride 100 ML IVPB SCH (11:47)
[2020-03-07] MEDS: *HR* Heparin 5,000 UNIT/ML VIAL SQ SCH (18:01)
[2020-03-08] MEDS: *HR* Heparin 5,000 UNIT/ML VIAL SQ SCH (06:10)
[2020-03-08] MEDS: levoFLOXacin 750 MG/150 ML 750 MG/150 ML BAG IVPB SCH (08:20)
[2020-03-08] MEDS: rOPINIRole 1 MG TABLET PO SCH (08:20)
[2020-03-08] MEDS: Aspirin Enteric Coated 81 MG Tablet PO SCH (08:20)
[2020-03-08] MEDS: PARoxetine 20 MG TABLET PO SCH (08:20)
[2020-03-08] MEDS: Lactobacillus 1 EACH CAP.SPRINK PO SCH (08:20)
[2020-03-08] MEDS: Gabapentin 300 MG CAPSULE PO SCH (08:21)
[2020-03-08] MEDS: amLODIPine 5 MG TABLET PO SCH (08:21)
[2020-03-08] MEDS: polyethylene glycoL 3350 17 GM POWD.PACK PO SCH (08:21)
[2020-03-08] MEDS: Insulin DETEMIR 100 UNIT/ML X5UNITS SUBQ SCH (08:23)
[2020-03-08] MEDS: Insulin LISPRO 300 UNITS/3 ML VIAL SUBQ SCH ×2 (08:27→12:39)
[2020-03-08] MEDS ORDERED: Fluconazole 400 MG/200 ML 400 MG/200 ML BAG IVPB SCH (09:00)
[2020-03-08 15:30] VITALS: BP 145/77
== END 2020-03-08 18:31 | disposition home health service (06) | DRG 853 ==
LOC: 3NENU → SUATTDRO 23:35
PROVIDERS: ADMIT Family Medicine; ATTEND Internal Medicine

== ENCOUNTER 2020-03-14 06:27 | Inpatient (IN) ==
[2020-03-14] MEDS ORDERED: CeFAZolin Syr 2,000MG/20 ML 2,000 MG/20 ML SYRINGE IVPB ONE (07:40)
[2020-03-14] MEDS ORDERED: Ringers Solution, Lactated 1,000 ML IVC SCH (07:45)
[2020-03-14] MEDS ORDERED: Vancomycin 1,250 MG/262.5 ML IV.SOLN IVPB ONE ×3 (08:00→21:30)
[2020-03-14] MEDS ORDERED: Famotidine 20 MG/2 ML VIAL IVP ONE (08:14)
[2020-03-14] MEDS ORDERED: *HR* HYDROmorphone PF 0.5 MG/0.5 ML SYRINGE IVP PRN (08:14)
[2020-03-14] MEDS ORDERED: Acetaminophen IV 1,000 MG/100 ML BAG IVPB ONE (08:14)
[2020-03-14] MEDS ORDERED: *HR* Labetalol 20 MG/4 ML SYRINGE IVP PRN ×2 (08:14→14:54)
[2020-03-14] MEDS ORDERED: Promethazine 6.25 MG in Water for inj. (sterile) 20 ML IVPB PRN (08:14)
[2020-03-14] MEDS ORDERED: Albuterol 2.5 MG/3 ML NEBULIZER IH PRN (08:14)
[2020-03-14] MEDS ORDERED: Ondansetron 4 MG/2 ML VIAL IVP PRN ×2 (08:14→14:54)
[2020-03-14] MEDS ORDERED: *HR* OxyCODONE Immed Rel 5 MG TABLET PO PRN ×2 (08:14→14:54)
[2020-03-14] MEDS ORDERED: *HR* Propofol 200 MG/20 ML VIAL IVP ONE (08:18)
[2020-03-14] MEDS ORDERED: Ondansetron 4 MG/2 ML VIAL ONE (08:18)
[2020-03-14] MEDS ORDERED: *HR* FentaNYL (PF) 100 MCG/2 ML VIAL ONE ×2 (08:18→09:17)
[2020-03-14] MEDS ORDERED: Dexamethasone 4 MG/ML VIAL ONE (08:18)
[2020-03-14] MEDS ORDERED: *HR* Rocuronium Bromide 50 MG/5 ML VIAL ONE (08:18)
[2020-03-14] MEDS ORDERED: *HR* Succinylcholine 200 MG/10 ML VIAL IVP ONE (08:18)
[2020-03-14] MEDS ORDERED: Lidocaine -MPF 2% 2 ML VIAL ONE (08:18)
[2020-03-14] MEDS ORDERED: Insulin Regular, Human 100 UNIT/ML SUBQ ONE (08:21)
[2020-03-14] MEDS ORDERED: Heparin 1,000 UNITS/500 mL 500 ML ONE (08:42)
[2020-03-14] MEDS ORDERED: Vancomycin 1,000 MG, Sodium Chloride IRRigation 1,000 ML IR ONE (08:45)
[2020-03-14] MEDS ORDERED: EPHEDrine 50 MG/ML VIAL ONE (09:43)
[2020-03-14] MEDS ORDERED: *HR* Vasopressin 20 UNIT/ML VIAL ONE (09:47)
[2020-03-14] MEDS ORDERED: *HR* Heparin 5,000 UNIT/ML VIAL ONE ×2 (11:23→12:10)
[2020-03-14] MEDS ORDERED: *HR* HYDROMORPHONE 2 MG/ML VIAL ONE (13:18)
[2020-03-14] MEDS ORDERED: Dextrose Gel 15 GM/37.5 ML TUBE PO PRN ×2 (14:54)
[2020-03-14] MEDS ORDERED: D5% in Water 1,000 ML IVC PRN (14:54)
[2020-03-14] MEDS ORDERED: *HR* Dextrose 50 % in Water (Vial) 50 ML VIAL IVP PRN (14:54)
[2020-03-14] MEDS ORDERED: *HR* HYDROcodone/Acet 5/325 mg TABLET PO PRN (14:54)
[2020-03-14] MEDS ORDERED: 0.9 % Sodium Chloride 1,000 ML IVC SCH (14:54)
[2020-03-14] MEDS ORDERED: Naloxone 0.4 MG/ML INJ IVP PRN (14:54)
[2020-03-14] MEDS ORDERED: Acetaminophen 325 MG TABLET PO PRN (14:54)
[2020-03-14] MEDS: CeFAZolin 2 GM/120 ML BAG IVPB SCH ×2 (16:03→23:25)
[2020-03-14] MEDS: Insulin LISPRO 300 UNITS/3 ML VIAL SUBQ SCH ×2 (16:08→16:52)
[2020-03-14] MEDS: *HR* Metoprolol 5 MG/5 ML VIAL IVP SCH ×3 (16:53→23:26)
[2020-03-14] MEDS ORDERED: Insulin LISPRO 300 UNITS/3 ML VIAL SUBQ SCH (21:00)
[2020-03-14] MEDS: rOPINIRole 1 MG TABLET PO SCH (21:45)
[2020-03-15 02:53] LABS: Basophils % 0.2 %; Eosinophils # 0.1 K/mcL (0.0-0.6); Eosinophils % 1.1 %; Hematocrit 29.6 % (37.5-50.1); Hemoglobin 9.2 g/dL (12.9-16.9); Immature Granulocytes % 0.5 % (0-4); Lymphocytes # 0.4 K/mcL (0.6-4.6); Lymphocytes % 7.7 %; Mean Corpuscular HGB Conc 31.1 g/dL (31.6-35.5); Mean Corpuscular Hemoglobin 24.4 pg (28.0-33.3); Mean Corpuscular Volume 78.5 fL (83.0-100.0); Mean Platelet Volume 9.3 fL (9.4-12.4); Monocytes # 0.4 K/mcL (0.0-1.3); Neutrophils # 4.7 K/mcL (1.6-8.9); Platelet Count 201 K/mcL (140-400); Red Blood Count 3.77 M/mcL (4.19-5.50); Red Cell Distribution Width 15.9 % (11.5-14.5); Segmented Neutrophils % 83.5 %; White Blood Count 5.6 K/mcL (4.3-11.1)
[2020-03-15 03:10] LABS: BUN/Creatinine Ratio 22 (6-26); Blood Urea Nitrogen 23 mg/dL (8-23); Calcium 8.7 mg/dL (8.6-10.3); Carbon Dioxide 26 mEq/L (23-29); Chloride 101 mEq/L (98-107); Glucose 156 mg/dL (70-105); Osmolality,Calculated 285 (280-300); Potassium 4.2 mEq/L (3.5-5.1); Sodium 134 mEq/L (136-145); eGFR For African Americans > 60 (> 60); eGFR For Non-African Americans > 60 (> 60)
[2020-03-15] MEDS: *HR* Metoprolol 5 MG/5 ML VIAL IVP SCH (04:46)
[2020-03-15] MEDS ORDERED: *HR* Heparin 5,000 UNIT/ML VIAL SQ SCH ×2 (06:00)
[2020-03-15 07:31] VITALS: BP 124/70
[2020-03-15] MEDS: Insulin LISPRO 300 UNITS/3 ML VIAL SUBQ SCH (08:32)
[2020-03-15] MEDS: rOPINIRole 1 MG TABLET PO SCH (08:33)
[2020-03-15] MEDS ORDERED: Gabapentin 300 MG CAPSULE PO SCH (09:00)
[2020-03-15] MEDS ORDERED: amLODIPine 5 MG TABLET PO SCH (09:00)
[2020-03-15] MEDS ORDERED: PARoxetine 20 MG TABLET PO SCH (09:00)
[2020-03-15] MEDS ORDERED: Empagliflozin [Jardiance] 10 MG PO SCH (09:00)
[2020-03-15] MEDS ORDERED: Aspirin Enteric Coated 81 MG Tablet PO SCH (09:00)
== END 2020-03-15 10:28 | disposition home or self-care (01) | DRG 253 ==
LOC: SAMDAY 06:27 → 2NNU 07:41
PROVIDERS: ADMIT Surgery; ATTEND Surgery

== ENCOUNTER 2020-06-19 20:06 | Observation (INO) ==
[2020-06-19] MEDS ORDERED: Ondansetron 4 MG/2 ML VIAL IVP ONE (20:32)
[2020-06-19 20:38] LABS: Hematocrit 38.8 % (37.5-50.1); Hemoglobin 12.7 g/dL (12.9-16.9); Mean Corpuscular HGB Conc 32.7 g/dL (31.6-35.5); Mean Corpuscular Hemoglobin 26.9 pg (28.0-33.3); Mean Corpuscular Volume 82.2 fL (83.0-100.0); Mean Platelet Volume 10.5 fL (9.4-12.4); Nucleated Red Blood Cells 0.1 /100 WBC (0); Platelet Count 192 K/mcL (140-400); Red Blood Count 4.72 M/mcL (4.19-5.50); Red Cell Distribution Width 14.6 % (11.5-14.5); White Blood Count 22.5 K/mcL (4.3-11.1)
[2020-06-19 20:45] LABS: INR 1.1; Prothrombin Time 12.6 Seconds (9.4-12.1)
[2020-06-19 21:01] LABS: Albumin 3.6 g/dL (3.5-5.7); Albumin/Globulin Ratio 1.3 (1.1-2.2); Bilirubin,Direct 0.1 mg/dL (0.0-0.2); Bilirubin,Indirect 0.6 mg/dL (0.0-1.0); Bilirubin,Total 0.7 mg/dL (0.3-1.0); Calcium 9.2 mg/dL (8.6-10.3); Globulin 2.8 g/dL (2.4-3.5); Potassium 4.1 mEq/L (3.5-5.1); Total Protein 6.4 g/dL (6.4-8.9)
[2020-06-19 21:03] LABS: Eosinophils # 0.5 K/mcL (0.0-0.6); Lymphocytes # 2.7 K/mcL (0.6-4.6); Monocytes # 1.4 K/mcL (0.0-1.3); Neutrophils # 16.2 K/mcL (1.6-8.9)
[2020-06-19 21:07] LABS: Troponin I 0.05 ng/mL (< 0.04)
[2020-06-19] MEDS ORDERED: Naloxone 0.4 MG/ML INJ IVP PRN (22:04)
[2020-06-19] MEDS ORDERED: Ondansetron 4 MG/2 ML VIAL IVP PRN (22:04)
[2020-06-19] MEDS ORDERED: Melatonin 3 MG TABLET PO PRN (22:04)
[2020-06-19 23:22] LABS: Adenovirus Not Detected (Not Detect); Bordetella Pertussis Not Detected (Not Detect); Chlamydophila pneumoniae Not Detected (Not Detect); Coronavirus 229E Not Detected (Not Detect); Coronavirus HKU1 Not Detected (Not Detect); Coronavirus NL63 Not Detected (Not Detect); Coronavirus OC43 Not Detected (Not Detect); Human Metapneumovirus Not Detected (Not Detect); Human Rhinovirus/Enterovirus Not Detected (Not Detect); Influenza A Subtype 2009 H1 Not Detected (Not Detect); Influenza B Not Detected (Not Detect); Mycoplasma pneumoniae Not Detected (Not Detect); Parainfluenza Virus 1 Not Detected (Not Detect); Parainfluenza Virus 2 Not Detected (Not Detect); Parainfluenza Virus 3 Not Detected (Not Detect); Parainfluenza Virus 4 Not Detected (Not Detect); Respiratory Syncytial Virus Not Detected (Not Detect); SARS-CoV-2 Not Detected (Not Detect)
[2020-06-19] MEDS ORDERED: Perflutren Lipid Microsphere 1.3 ML in 0.9 % Sodium Chloride 8.7 ML IVP PRN (23:49)
[2020-06-19] MEDS ORDERED: Nitroglycerin 0.4 MG TAB.SUBL SL PRN (23:49)
[2020-06-19] MEDS ORDERED: D5% in Water 1,000 ML IVC PRN (23:55)
[2020-06-19] MEDS ORDERED: Dextrose Gel 15 GM/37.5 ML TUBE PO PRN ×2 (23:55)
[2020-06-19] MEDS ORDERED: *HR* Dextrose 50 % in Water (Vial) 50 ML VIAL IVP PRN (23:55)
[2020-06-20] MEDS ORDERED: 0.9 % Sodium Chloride 1,000 ML IVC SCH (00:30)
[2020-06-20] MEDS: Insulin DETEMIR 100 UNIT/ML X5UNITS SUBQ SCH ×2 (00:46→21:20)
[2020-06-20] MEDS: Insulin LISPRO 300 UNITS/3 ML VIAL SUBQ SCH ×4 (00:46→16:51)
[2020-06-20 05:15] LABS: Mean Corpuscular HGB Conc 32.4 g/dL (31.6-35.5); Mean Corpuscular Hemoglobin 27.1 pg (28.0-33.3); Mean Corpuscular Volume 83.5 fL (83.0-100.0); Mean Platelet Volume 10.5 fL (9.4-12.4); Platelet Count 182 K/mcL (140-400); Red Blood Count 4.43 M/mcL (4.19-5.50); Red Cell Distribution Width 14.8 % (11.5-14.5); White Blood Count 18.5 K/mcL (4.3-11.1)
[2020-06-20 05:38] LABS: Calcium 9.1 mg/dL (8.6-10.3); Potassium 3.8 mEq/L (3.5-5.1)
[2020-06-20 05:42] LABS: Troponin I 0.05 ng/mL (< 0.04)
[2020-06-20] MEDS: rOPINIRole 1 MG TABLET PO SCH ×2 (16:00→19:57)
[2020-06-20] MEDS: Apixaban 5 MG TABLET PO SCH (19:57)
[2020-06-20] MEDS: Gabapentin 300 MG CAPSULE PO SCH (19:57)
[2020-06-20] MEDS ORDERED: rOPINIRole 1 MG TABLET PO SCH (21:00)
[2020-06-21] MEDS ORDERED: Regadenoson 0.4 MG/5 ML SYRINGE IVP ONE (06:20)
[2020-06-21 06:43] LABS: Hematocrit 38.3 % (37.5-50.1); Hemoglobin 12.2 g/dL (12.9-16.9); Mean Corpuscular HGB Conc 31.9 g/dL (31.6-35.5); Mean Corpuscular Hemoglobin 26.7 pg (28.0-33.3); Mean Corpuscular Volume 83.8 fL (83.0-100.0); Mean Platelet Volume 10.6 fL (9.4-12.4); Platelet Count 192 K/mcL (140-400); Red Blood Count 4.57 M/mcL (4.19-5.50); Red Cell Distribution Width 14.6 % (11.5-14.5); White Blood Count 18.5 K/mcL (4.3-11.1)
[2020-06-21 07:00] LABS: Magnesium 1.7 mg/dL (1.6-2.6); Potassium 3.9 mEq/L (3.5-5.1)
[2020-06-21] MEDS ORDERED: Metoprolol XL (24 HR) Succ 25 MG TAB.ER.24H PO SCH (09:00)
[2020-06-21] MEDS ORDERED: Aspirin Enteric Coated 81 MG Tablet PO SCH (09:00)
[2020-06-21] MEDS ORDERED: PARoxetine 20 MG TABLET PO SCH (09:00)
[2020-06-21 10:09] VITALS: BP 149/85
[2020-06-21] MEDS: Apixaban 5 MG TABLET PO SCH (11:35)
[2020-06-21] MEDS: rOPINIRole 1 MG TABLET PO SCH (11:35)
[2020-06-21] MEDS: Insulin LISPRO 300 UNITS/3 ML VIAL SUBQ SCH ×2 (11:35→11:36)
[2020-06-21] MEDS: Gabapentin 300 MG CAPSULE PO SCH (11:35)
== END 2020-06-21 16:34 | disposition home or self-care (01) ==
LOC: EMEROOARM 20:06 → CDU 20:06 → SUATTDRO 22:13 → CDU 22:35 → 3BNU 06-20 18:10
PROVIDERS: ADMIT Student in an Organized Health Care Education/Training Program; ATTEND Internal Medicine

== ENCOUNTER 2021-05-31 00:55 | Inpatient (IN) ==
[2021-05-31] MEDS ORDERED: Naloxone 0.4 MG/ML INJ IVP PRN (04:15)
[2021-05-31] MEDS ORDERED: Ondansetron ODT 4 MG TAB.RAPDIS SL PRN (04:15)
[2021-05-31] MEDS ORDERED: Melatonin 3 MG TABLET PO PRN (04:15)
[2021-05-31] MEDS ORDERED: Acetaminophen 325 MG TABLET PO PRN (04:15)
[2021-05-31] MEDS ORDERED: D5% in Water 1,000 ML IVC PRN (04:27)
[2021-05-31] MEDS ORDERED: *HR* Dextrose 50 % in Water (Syg) 50 ML SYRINGE IVP PRN (04:27)
[2021-05-31] MEDS ORDERED: Dextrose 4 GM Chewable Tablets PO PRN ×2 (04:27)
[2021-05-31 05:15] LABS: Hematocrit 20.5 % (37.5-50.1); Hemoglobin 6.3 g/dL (12.9-16.9); Mean Corpuscular HGB Conc 30.7 g/dL (31.6-35.5); Mean Corpuscular Hemoglobin 30.3 pg (28.0-33.3); Mean Corpuscular Volume 98.6 fL (83.0-100.0); Mean Platelet Volume 8.9 fL (9.4-12.4); Platelet Count 211 K/mcL (140-400); Red Blood Count 2.08 M/mcL (4.19-5.50); Red Cell Distribution Width 20.6 % (11.5-14.5)
[2021-05-31 05:17] LABS: White Blood Count 39.7 K/mcL (4.3-11.1)
[2021-05-31 05:32] LABS: INR 1.7; Prothrombin Time 19.2 Seconds (9.4-12.1)
[2021-05-31 05:34] LABS: Estimated Average Glucose 123 mg/dl; Hemoglobin A1C 5.9 %
[2021-05-31 05:35] LABS: Calcium 7.7 mg/dL (8.6-10.3); Potassium 3.9 mEq/L (3.5-5.1)
[2021-05-31] MEDS: *HR* Heparin 5,000 UNIT/ML VIAL SQ SCH ×2 (06:40→16:51)
[2021-05-31 07:03] LABS: Basophils # 0.1 K/mcL (0.0-0.2); Basophils % 0.2 %; Immature Granulocytes % 10.8 % (0-4); Immature Reticulocyte % 38.8 % (11.0-38.0); Lymphocytes % 2.5 %; Monocytes # 2.2 K/mcL (0.0-1.3); Monocytes % 5.6 %; Nucleated Red Blood Cells 0.1 /100 WBC (0); Retculocyte # 0.05 M/mcL (0.05-0.10); Reticulocyte % 2.4 % (1.6-2.8); Segmented Neutrophils % 80.9 %
[2021-05-31 07:04] LABS: Neutrophils # 32.1 K/mcL (1.6-8.9)
[2021-05-31 07:35] LABS: Folate 12.5 ng/mL (3.0-16.0)
[2021-05-31 07:38] LABS: Vitamin B12 > 1500 pg/mL (250-1100)
[2021-05-31 08:05] LABS: Poikilocytosis 2+ (Not Present); Target Cells 1+ (Not Present)
[2021-05-31 08:06] LABS: Anisocytosis 1+ (Not Present)
[2021-05-31 08:07] LABS: Hypochromasia Present (Not Present); Large Platelets Present (Not Present); Platelet Estimate Normal (Normal)
[2021-05-31] MEDS: Piperacillin/Tazobactam 3.375 GM in 0.9 % Sodium Chloride Mini Bag 100 ML IVPB SCH ×2 (08:18→16:51)
[2021-05-31] MEDS: Insulin LISPRO 300 UNITS/3 ML VIAL SUBQ SCH ×3 (08:19→16:30)
[2021-05-31] MEDS ORDERED: 0.9 % Sodium Chloride 500 ML ONE (08:34)
[2021-05-31 16:11] LABS: Hematocrit 29.8 % (37.5-50.1)
[2021-05-31 16:12] LABS: Hemoglobin 9.6 g/dL (12.9-16.9)
[2021-05-31] MEDS ORDERED: Vancomycin 1,250 MG/262.5 ML IV.SOLN IVPB SCH (18:00)
[2021-06-01] MEDS: Piperacillin/Tazobactam 3.375 GM in 0.9 % Sodium Chloride Mini Bag 100 ML IVPB SCH ×4 (00:33→23:29)
[2021-06-01 04:34] LABS: Mean Platelet Volume 9.2 fL (9.4-12.4); Platelet Count 208 K/mcL (140-400)
[2021-06-01 04:35] LABS: Hematocrit 26.3 % (37.5-50.1); Hemoglobin 8.4 g/dL (12.9-16.9); Mean Corpuscular HGB Conc 31.9 g/dL (31.6-35.5); Mean Corpuscular Hemoglobin 29.9 pg (28.0-33.3); Mean Corpuscular Volume 93.6 fL (83.0-100.0); Red Blood Count 2.81 M/mcL (4.19-5.50); Red Cell Distribution Width 20.3 % (11.5-14.5)
[2021-06-01 04:49] LABS: White Blood Count 52.2 K/mcL (4.3-11.1)
[2021-06-01 04:54] LABS: Calcium 7.6 mg/dL (8.6-10.3)
[2021-06-01 05:21] LABS: Neutrophils # 50.1 K/mcL (1.6-8.9)
[2021-06-01 05:22] LABS: Anisocytosis 1+ (Not Present); Platelet Estimate Normal (Normal); Poikilocytosis 1+ (Not Present)
[2021-06-01] MEDS: *HR* Heparin 5,000 UNIT/ML VIAL SQ SCH (05:26)
[2021-06-01] MEDS: Insulin LISPRO 300 UNITS/3 ML VIAL SUBQ SCH ×3 (08:11→20:01)
[2021-06-01] MEDS ORDERED: *HR* Propofol 200 MG/20 ML VIAL IVP ONE (08:50)
[2021-06-01] MEDS ORDERED: *HR* FentaNYL (PF) 100 MCG/2 ML VIAL ONE (08:51)
[2021-06-01] MEDS ORDERED: Lidocaine -MPF 2% 2 ML VIAL ONE (08:53)
[2021-06-01] MEDS ORDERED: allopurinoL 100 MG TABLET PO SCH (09:00)
[2021-06-01] MEDS ORDERED: Hydroxyurea 500 MG CAPSULE PO SCH (09:00)
[2021-06-01] MEDS ORDERED: Cholecalciferol (D-3) 1,000 UNIT (25MCG) TABLET PO SCH (09:00)
[2021-06-01] MEDS ORDERED: Metoprolol XL (24 HR) Succ 25 MG TAB.ER.24H PO SCH (09:00)
[2021-06-01] MEDS ORDERED: rOPINIRole 1 MG TABLET PO SCH (09:00)
[2021-06-01] MEDS ORDERED: Famotidine 20 MG TABLET PO SCH (09:00)
[2021-06-01] MEDS ORDERED: Vancomycin 1,000 MG VIAL ONE (09:51)
[2021-06-01] MEDS ORDERED: Ondansetron 4 MG/2 ML VIAL ONE (10:08)
[2021-06-01] MEDS ORDERED: *HR* HYDROMORPHONE 2 MG/ML VIAL ONE (10:50)
[2021-06-01] MEDS ORDERED: EPHEDrine 50 MG/ML VIAL ONE (11:57)
[2021-06-01] MEDS ORDERED: EPHEDrine 50 MG/ML VIAL IVP PRN (12:00)
[2021-06-01] MEDS ORDERED: Albumin Human 5% 12.5 GM/250 ML IV.SOLN ONE (12:01)
[2021-06-01] MEDS ORDERED: Acetaminophen IV 1,000 MG/100 ML BAG IVPB ONE ×2 (12:07→12:08)
[2021-06-01] MEDS ORDERED: D5% in Water 1,000 ML IVC PRN (12:29)
[2021-06-01] MEDS ORDERED: Naloxone 0.4 MG/ML INJ IVP PRN (12:29)
[2021-06-01] MEDS ORDERED: Dextrose 4 GM Chewable Tablets PO PRN ×2 (12:29)
[2021-06-01] MEDS ORDERED: *HR* Dextrose 50 % in Water (Syg) 50 ML SYRINGE IVP PRN (12:29)
[2021-06-01] MEDS ORDERED: Ondansetron ODT 4 MG TAB.RAPDIS SL PRN (12:29)
[2021-06-01] MEDS ORDERED: *HR* OxyCODONE/APAP 5/325 TABLET PO PRN (12:29)
[2021-06-01] MEDS ORDERED: 0.9 % Sodium Chloride 500 ML IVC ONE (12:49)
[2021-06-01] MEDS ORDERED: 0.9 % Sodium Chloride 500 ML ONE (12:51)
[2021-06-01] MEDS ORDERED: Albumin Human 5% 12.5 GM/250 ML IV.SOLN IVPB PRN (13:59)
[2021-06-01] MEDS: *HR* OxyCODONE/APAP 7.5/325 TABLET PO PRN ×2 (16:41→20:12)
[2021-06-01] MEDS: rOPINIRole 1 MG TABLET PO SCH (20:12)
[2021-06-01] MEDS: Hydroxyurea 500 MG CAPSULE PO SCH (20:13)
[2021-06-01] MEDS ORDERED: Melatonin 3 MG TABLET PO PRN (21:00)
[2021-06-01] MEDS ORDERED: Morphine Sulfate 2 MG/ML SYRINGE IVP ONE (23:18)
[2021-06-02] MEDS ORDERED: *HR* HYDROmorphone (PF) 1 MG/ML SYRINGE IVP ONE ×3 (00:46→23:08)
[2021-06-02 01:22] LABS: Basophils # 0.1 K/mcL (0.0-0.2); Basophils % 0.2 %; Eosinophils % 0.1 %; Hematocrit 27.4 % (37.5-50.1); Immature Granulocytes % 16.9 % (0-4); Lymphocytes % 2.5 %; Mean Corpuscular HGB Conc 32.8 g/dL (31.6-35.5); Mean Corpuscular Hemoglobin 30.9 pg (28.0-33.3); Mean Corpuscular Volume 94.2 fL (83.0-100.0); Mean Platelet Volume 9.3 fL (9.4-12.4); Monocytes # 1.7 K/mcL (0.0-1.3); Monocytes % 4.3 %; Platelet Count 221 K/mcL (140-400); Red Blood Count 2.91 M/mcL (4.19-5.50); Red Cell Distribution Width 20.2 % (11.5-14.5)
[2021-06-02 01:26] LABS: Neutrophils # 29.6 K/mcL (1.6-8.9)
[2021-06-02 01:50] LABS: Anisocytosis 1+ (Not Present); Hypochromasia Present (Not Present); Platelet Estimate Normal (Normal)
[2021-06-02 02:43] LABS: Calcium 7.4 mg/dL (8.6-10.3); Potassium 4.5 mEq/L (3.5-5.1)
[2021-06-02] MEDS: *HR* Heparin 5,000 UNIT/ML VIAL SQ SCH ×2 (06:08→18:24)
[2021-06-02] MEDS ORDERED: *HR* Heparin 10,000 UNIT/10 ML VIAL IV PRN (08:10)
[2021-06-02] MEDS ORDERED: 0.9 % Sodium Chloride 250 ML IVC PRN (08:10)
[2021-06-02] MEDS ORDERED: 0.9 % Sodium Chloride 1,000 ML PRIME SCH (08:15)
[2021-06-02] MEDS: Insulin LISPRO 300 UNITS/3 ML VIAL SUBQ SCH ×3 (09:57→16:46)
[2021-06-02] MEDS ORDERED: Piperacillin/Tazobactam 3.375 GM in 0.9 % Sodium Chloride Mini Bag 100 ML IVPB SCH (10:00)
[2021-06-02] MEDS ORDERED: Albumin 25% 25gram/100mL 25 GM/100 ML IV.SOLN IVPB ONE (10:28)
[2021-06-02] MEDS: *HR* OxyCODONE/APAP 7.5/325 TABLET PO PRN (10:49)
[2021-06-02 11:59] LABS: Hepatitis B Surface Antibody < 3.10 mIU/mL
[2021-06-02 12:08] LABS: Hepatitis B Surface Antigen Nonreactive (Nonreactive)
[2021-06-02] MEDS: Cholecalciferol (D-3) 1,000 UNIT (25MCG) TABLET PO SCH (14:56)
[2021-06-02] MEDS: *HR* OxyCODONE/APAP 10/325 TABLET PO PRN ×2 (14:57→19:25)
[2021-06-02] MEDS: Famotidine 20 MG TABLET PO SCH (14:57)
[2021-06-02] MEDS: allopurinoL 100 MG TABLET PO SCH (14:57)
[2021-06-02] MEDS: Metoprolol XL (24 HR) Succ 25 MG TAB.ER.24H PO SCH (14:58)
[2021-06-02] MEDS: Hydroxyurea 500 MG CAPSULE PO SCH ×2 (15:05→15:06)
[2021-06-02] MEDS: rOPINIRole 1 MG TABLET PO SCH ×2 (15:06→19:25)
[2021-06-02] MEDS: Piperacillin/Tazobactam 3.375 GM in 0.9 % Sodium Chloride Mini Bag 100 ML IVPB SCH (15:18)
[2021-06-03] MEDS: *HR* OxyCODONE/APAP 10/325 TABLET PO PRN ×2 (01:35→05:35)
[2021-06-03 02:29] LABS: Nucleated Red Blood Cells 0.1 /100 WBC (0); Platelet Count 168 K/mcL (140-400)
[2021-06-03 02:30] LABS: Hematocrit 22.8 % (37.5-50.1); Mean Corpuscular HGB Conc 30.7 g/dL (31.6-35.5); Mean Corpuscular Hemoglobin 29.4 pg (28.0-33.3); Mean Corpuscular Volume 95.8 fL (83.0-100.0); Mean Platelet Volume 9.5 fL (9.4-12.4); Red Blood Count 2.38 M/mcL (4.19-5.50); Red Cell Distribution Width 19.7 % (11.5-14.5); White Blood Count 29.6 K/mcL (4.3-11.1)
[2021-06-03 02:36] LABS: Albumin/Globulin Ratio 0.7 (1.1-2.2); Bilirubin,Total 0.4 mg/dL (0.3-1.0); Calcium 7.3 mg/dL (8.6-10.3); Globulin 2.8 g/dL (2.4-3.5); Potassium 3.9 mEq/L (3.5-5.1); Total Protein 4.8 g/dL (6.4-8.9)
[2021-06-03 03:13] LABS: Neutrophils # 25.8 K/mcL (1.6-8.9)
[2021-06-03 03:14] LABS: Eosinophils # 0.3 K/mcL (0.0-0.6); Lymphocytes # 1.5 K/mcL (0.6-4.6); Monocytes # 1.2 K/mcL (0.0-1.3)
[2021-06-03 03:15] LABS: Anisocytosis 1+ (Not Present); Hypochromasia Present (Not Present); Platelet Estimate Normal (Normal)
[2021-06-03] MEDS: Piperacillin/Tazobactam 3.375 GM in 0.9 % Sodium Chloride Mini Bag 100 ML IVPB SCH ×2 (03:55→15:55)
[2021-06-03] MEDS: *HR* Heparin 5,000 UNIT/ML VIAL SQ SCH ×2 (05:35→16:52)
[2021-06-03] MEDS ORDERED: *HR* HYDROmorphone 2 MG/ML SYRINGE IVP ONE (07:23)
[2021-06-03] MEDS: rOPINIRole 1 MG TABLET PO SCH ×2 (09:48→20:55)
[2021-06-03] MEDS: Hydroxyurea 500 MG CAPSULE PO SCH ×2 (09:48→20:55)
[2021-06-03] MEDS: Metoprolol XL (24 HR) Succ 25 MG TAB.ER.24H PO SCH (09:49)
[2021-06-03] MEDS: Cholecalciferol (D-3) 1,000 UNIT (25MCG) TABLET PO SCH (09:49)
[2021-06-03] MEDS: Gabapentin 100 MG CAPSULE PO SCH ×3 (09:50→20:54)
[2021-06-03] MEDS: Famotidine 20 MG TABLET PO SCH (09:50)
[2021-06-03] MEDS: Insulin LISPRO 300 UNITS/3 ML VIAL SUBQ SCH ×3 (09:51→16:49)
[2021-06-03] MEDS: allopurinoL 100 MG TABLET PO SCH (09:55)
[2021-06-03] MEDS: *HR* HYDROmorphone 2 MG TABLET PO PRN ×3 (12:38→23:26)
[2021-06-03] MEDS: *HR* HYDROmorphone (PF) 1 MG/ML SYRINGE IVP PRN ×2 (14:59→21:01)
[2021-06-03 18:23] LABS: Hematocrit 19.8 % (37.5-50.1); Hemoglobin 6.3 g/dL (12.9-16.9)
[2021-06-04] MEDS: *HR* HYDROmorphone (PF) 1 MG/ML SYRINGE IVP PRN ×4 (02:05→23:15)
[2021-06-04 03:31] LABS: Basophils % 0.6 %
[2021-06-04 03:32] LABS: Basophils # 0.2 K/mcL (0.0-0.2); Eosinophils # 0.1 K/mcL (0.0-0.6); Eosinophils % 0.3 %; Hematocrit 18.5 % (37.5-50.1); Immature Granulocytes % 12.8 % (0-4); Lymphocytes # 0.9 K/mcL (0.6-4.6); Lymphocytes % 3.5 %; Mean Corpuscular HGB Conc 31.9 g/dL (31.6-35.5); Mean Corpuscular Hemoglobin 30.7 pg (28.0-33.3); Mean Corpuscular Volume 96.4 fL (83.0-100.0); Mean Platelet Volume 9.7 fL (9.4-12.4); Monocytes % 3.7 %; Nucleated Red Blood Cells 0.1 /100 WBC (0); Platelet Count 133 K/mcL (140-400); Red Blood Count 1.92 M/mcL (4.19-5.50); Red Cell Distribution Width 19.9 % (11.5-14.5); Segmented Neutrophils % 79.1 %; White Blood Count 25.6 K/mcL (4.3-11.1)
[2021-06-04] MEDS: Piperacillin/Tazobactam 3.375 GM in 0.9 % Sodium Chloride Mini Bag 100 ML IVPB SCH ×2 (03:34→14:42)
[2021-06-04 03:37] LABS: Neutrophils # 20.3 K/mcL (1.6-8.9)
[2021-06-04 03:38] LABS: Hemoglobin 5.9 g/dL (12.9-16.9)
[2021-06-04 03:50] LABS: Calcium 7.3 mg/dL (8.6-10.3); Potassium 4.4 mEq/L (3.5-5.1)
[2021-06-04] MEDS: *HR* HYDROmorphone 2 MG TABLET PO PRN ×4 (04:20→21:16)
[2021-06-04] MEDS: *HR* Heparin 5,000 UNIT/ML VIAL SQ SCH (05:00)
[2021-06-04] MEDS ORDERED: 0.9 % Sodium Chloride 250 ML ONE ×2 (05:17→09:20)
[2021-06-04] MEDS: Cholecalciferol (D-3) 1,000 UNIT (25MCG) TABLET PO SCH (08:41)
[2021-06-04] MEDS: Metoprolol XL (24 HR) Succ 25 MG TAB.ER.24H PO SCH (08:42)
[2021-06-04] MEDS: allopurinoL 100 MG TABLET PO SCH (08:42)
[2021-06-04] MEDS: Famotidine 20 MG TABLET PO SCH (08:42)
[2021-06-04] MEDS: rOPINIRole 1 MG TABLET PO SCH ×2 (08:43→19:49)
[2021-06-04] MEDS: Gabapentin 100 MG CAPSULE PO SCH ×3 (08:43→19:49)
[2021-06-04] MEDS: Hydroxyurea 500 MG CAPSULE PO SCH ×2 (08:43→19:48)
[2021-06-04] MEDS: Insulin LISPRO 300 UNITS/3 ML VIAL SUBQ SCH ×3 (08:44→17:15)
[2021-06-04] MEDS ORDERED: 0.9 % Sodium Chloride 250 ML IVC PRN (12:34)
[2021-06-04] MEDS ORDERED: *HR* Heparin 10,000 UNIT/10 ML VIAL IV PRN (12:34)
[2021-06-04 15:49] LABS: Hematocrit 22.8 % (37.5-50.1); Hemoglobin 7.3 g/dL (12.9-16.9)
[2021-06-05] MEDS: *HR* HYDROmorphone 2 MG TABLET PO PRN ×4 (02:49→20:24)
[2021-06-05] MEDS: Piperacillin/Tazobactam 3.375 GM in 0.9 % Sodium Chloride Mini Bag 100 ML IVPB SCH ×2 (03:54→13:57)
[2021-06-05 04:41] LABS: Basophils # 0.1 K/mcL (0.0-0.2); Basophils % 0.6 %; Eosinophils % 0.2 %; Hematocrit 19.8 % (37.5-50.1); Hemoglobin 6.3 g/dL (12.9-16.9); Immature Granulocytes % 8.9 % (0-4); Lymphocytes # 0.9 K/mcL (0.6-4.6); Lymphocytes % 3.7 %; Mean Corpuscular HGB Conc 31.8 g/dL (31.6-35.5); Mean Corpuscular Hemoglobin 30.3 pg (28.0-33.3); Mean Corpuscular Volume 95.2 fL (83.0-100.0); Mean Platelet Volume 9.9 fL (9.4-12.4); Monocytes # 0.8 K/mcL (0.0-1.3); Monocytes % 3.6 %; Neutrophils # 19.3 K/mcL (1.6-8.9); Platelet Count 119 K/mcL (140-400); Red Blood Count 2.08 M/mcL (4.19-5.50); Red Cell Distribution Width 17.9 % (11.5-14.5); White Blood Count 23.2 K/mcL (4.3-11.1)
[2021-06-05 04:54] LABS: Eosinophils # 0.1 K/mcL (0.0-0.6)
[2021-06-05 04:59] LABS: Calcium 7.4 mg/dL (8.6-10.3); Potassium 4.2 mEq/L (3.5-5.1)
[2021-06-05 05:18] LABS: Platelet Estimate Normal (Normal)
[2021-06-05 05:19] LABS: Anisocytosis 1+ (Not Present); Hypochromasia Present (Not Present); Microcytosis Present (Not Present)
[2021-06-05] MEDS: *HR* HYDROmorphone (PF) 1 MG/ML SYRINGE IVP PRN ×2 (06:29→16:51)
[2021-06-05] MEDS ORDERED: 0.9 % Sodium Chloride 250 ML ONE ×2 (08:57→13:42)
[2021-06-05] MEDS: Famotidine 20 MG TABLET PO SCH (09:14)
[2021-06-05] MEDS: allopurinoL 100 MG TABLET PO SCH (09:14)
[2021-06-05] MEDS: Cholecalciferol (D-3) 1,000 UNIT (25MCG) TABLET PO SCH (09:14)
[2021-06-05] MEDS: Metoprolol XL (24 HR) Succ 25 MG TAB.ER.24H PO SCH (09:14)
[2021-06-05] MEDS: Gabapentin 100 MG CAPSULE PO SCH ×3 (09:14→20:23)
[2021-06-05] MEDS: Hydroxyurea 500 MG CAPSULE PO SCH ×2 (09:15→20:24)
[2021-06-05] MEDS: rOPINIRole 1 MG TABLET PO SCH ×2 (09:15→20:23)
[2021-06-05] MEDS: Insulin LISPRO 300 UNITS/3 ML VIAL SUBQ SCH ×3 (09:15→16:52)
[2021-06-05 12:29] LABS: Total Volume 24 Hour,Urine 0.42 Liters (0.80-1.80)
[2021-06-05 17:20] LABS: Hematocrit 22.2 % (37.5-50.1); Hemoglobin 7.2 g/dL (12.9-16.9)
[2021-06-06] MEDS: *HR* HYDROmorphone 2 MG TABLET PO PRN ×3 (02:20→21:23)
[2021-06-06] MEDS: Piperacillin/Tazobactam 3.375 GM in 0.9 % Sodium Chloride Mini Bag 100 ML IVPB SCH ×2 (02:22→15:10)
[2021-06-06 03:51] LABS: Basophils # 0.1 K/mcL (0.0-0.2); Basophils % 0.6 %; Eosinophils % 0.1 %; Hematocrit 21.4 % (37.5-50.1); Hemoglobin 6.9 g/dL (12.9-16.9); Immature Granulocytes % 4.8 % (0-4); Lymphocytes # 0.7 K/mcL (0.6-4.6); Lymphocytes % 3.2 %; Mean Corpuscular HGB Conc 32.2 g/dL (31.6-35.5); Mean Corpuscular Hemoglobin 29.6 pg (28.0-33.3); Mean Corpuscular Volume 91.8 fL (83.0-100.0); Monocytes # 0.7 K/mcL (0.0-1.3); Neutrophils # 19.9 K/mcL (1.6-8.9); Nucleated Red Blood Cells 0.1 /100 WBC (0); Platelet Count 102 K/mcL (140-400); Red Blood Count 2.33 M/mcL (4.19-5.50); Red Cell Distribution Width 17.8 % (11.5-14.5); Segmented Neutrophils % 88.3 %; White Blood Count 22.5 K/mcL (4.3-11.1)
[2021-06-06 04:08] LABS: Calcium 7.5 mg/dL (8.6-10.3); Potassium 4.4 mEq/L (3.5-5.1)
[2021-06-06] MEDS: Metoprolol XL (24 HR) Succ 25 MG TAB.ER.24H PO SCH (08:21)
[2021-06-06] MEDS: Cholecalciferol (D-3) 1,000 UNIT (25MCG) TABLET PO SCH (08:21)
[2021-06-06] MEDS: rOPINIRole 1 MG TABLET PO SCH ×2 (08:21→19:58)
[2021-06-06] MEDS: allopurinoL 100 MG TABLET PO SCH (08:21)
[2021-06-06] MEDS: Gabapentin 100 MG CAPSULE PO SCH ×3 (08:21→19:58)
[2021-06-06] MEDS: Famotidine 20 MG TABLET PO SCH (08:22)
[2021-06-06] MEDS: *HR* HYDROmorphone (PF) 1 MG/ML SYRINGE IVP PRN ×4 (08:22→21:22)
[2021-06-06] MEDS: Hydroxyurea 500 MG CAPSULE PO SCH ×2 (08:22→19:58)
[2021-06-06] MEDS: Insulin LISPRO 300 UNITS/3 ML VIAL SUBQ SCH ×3 (08:23→15:43)
[2021-06-06] MEDS ORDERED: *HR* Heparin 10,000 UNIT/10 ML VIAL IV PRN (08:45)
[2021-06-06] MEDS ORDERED: 0.9 % Sodium Chloride 250 ML IVC PRN (08:45)
[2021-06-06 08:55] LABS: Hematocrit 21.6 % (37.5-50.1)
[2021-06-06 12:04] LABS: Protein/Creatinine Ratio,Urine 2.24 mg/mg (0.00-0.20)
[2021-06-06 17:55] LABS: Hematocrit 19.3 % (37.5-50.1); Hemoglobin 6.3 g/dL (12.9-16.9)
[2021-06-07] MEDS: *HR* HYDROmorphone (PF) 1 MG/ML SYRINGE IVP PRN ×5 (01:57→17:52)
[2021-06-07] MEDS: *HR* HYDROmorphone 2 MG TABLET PO PRN ×2 (02:12→05:59)
[2021-06-07] MEDS: Piperacillin/Tazobactam 3.375 GM in 0.9 % Sodium Chloride Mini Bag 100 ML IVPB SCH ×2 (02:12→14:11)
[2021-06-07 03:17] LABS: Basophils % 0.4 %; Eosinophils % 0.1 %
[2021-06-07 03:19] LABS: Basophils # 0.1 K/mcL (0.0-0.2); Hematocrit 22.6 % (37.5-50.1); Hemoglobin 7.7 g/dL (12.9-16.9); Immature Granulocytes % 2.7 % (0-4); Immature Platelets 1.8 % (1.1-6.1); Lymphocytes # 0.3 K/mcL (0.6-4.6); Lymphocytes % 2.1 %; Mean Corpuscular HGB Conc 34.1 g/dL (31.6-35.5); Mean Corpuscular Hemoglobin 30.6 pg (28.0-33.3); Mean Corpuscular Volume 89.7 fL (83.0-100.0); Mean Platelet Volume 9.8 fL (9.4-12.4); Monocytes # 0.3 K/mcL (0.0-1.3); Monocytes % 2.1 %; Neutrophils # 14.5 K/mcL (1.6-8.9); Red Blood Count 2.52 M/mcL (4.19-5.50); Red Cell Distribution Width 16.7 % (11.5-14.5); Segmented Neutrophils % 92.6 %; White Blood Count 15.7 K/mcL (4.3-11.1)
[2021-06-07 03:20] LABS: Platelet Count 93 K/mcL (140-400)
[2021-06-07 03:36] LABS: Calcium 7.7 mg/dL (8.6-10.3); Potassium 4.3 mEq/L (3.5-5.1)
[2021-06-07] MEDS: allopurinoL 100 MG TABLET PO SCH (09:04)
[2021-06-07] MEDS: Cholecalciferol (D-3) 1,000 UNIT (25MCG) TABLET PO SCH (09:04)
[2021-06-07] MEDS: rOPINIRole 1 MG TABLET PO SCH ×2 (09:04→20:31)
[2021-06-07] MEDS: Metoprolol XL (24 HR) Succ 25 MG TAB.ER.24H PO SCH (09:04)
[2021-06-07] MEDS: Gabapentin 100 MG CAPSULE PO SCH ×3 (09:04→20:31)
[2021-06-07] MEDS: Hydroxyurea 500 MG CAPSULE PO SCH ×2 (09:05→20:31)
[2021-06-07] MEDS: Insulin LISPRO 300 UNITS/3 ML VIAL SUBQ SCH ×3 (09:05→16:55)
[2021-06-07] MEDS: Famotidine 20 MG TABLET PO SCH (09:06)
[2021-06-07 14:32] LABS: Hematocrit 20.1 % (37.5-50.1); Hemoglobin 6.5 g/dL (12.9-16.9)
[2021-06-08] MEDS: *HR* HYDROmorphone (PF) 1 MG/ML SYRINGE IVP PRN ×4 (01:03→12:32)
[2021-06-08] MEDS: Piperacillin/Tazobactam 3.375 GM in 0.9 % Sodium Chloride Mini Bag 100 ML IVPB SCH (04:10)
[2021-06-08 04:27] LABS: Mean Corpuscular Volume 89.8 fL (83.0-100.0)
[2021-06-08 04:29] LABS: Basophils % 0.5 %; Eosinophils % 0.2 %; Hematocrit 20.2 % (37.5-50.1); Hemoglobin 6.6 g/dL (12.9-16.9); Immature Granulocytes % 2.2 % (0-4); Immature Platelets 2.9 % (1.1-6.1); Lymphocytes # 0.3 K/mcL (0.6-4.6); Lymphocytes % 5.7 %; Mean Corpuscular HGB Conc 32.7 g/dL (31.6-35.5); Mean Corpuscular Hemoglobin 29.3 pg (28.0-33.3); Mean Platelet Volume 9.6 fL (9.4-12.4); Monocytes # 0.2 K/mcL (0.0-1.3); Monocytes % 2.6 %; Red Blood Count 2.25 M/mcL (4.19-5.50); Red Cell Distribution Width 17.2 % (11.5-14.5); Segmented Neutrophils % 88.8 %; White Blood Count 5.8 K/mcL (4.3-11.1)
[2021-06-08 04:36] LABS: Neutrophils # 5.2 K/mcL (1.6-8.9); Platelet Count 60 K/mcL (140-400)
[2021-06-08 04:43] LABS: Calcium 7.4 mg/dL (8.6-10.3); Potassium 4.7 mEq/L (3.5-5.1)
[2021-06-08] MEDS: Gabapentin 100 MG CAPSULE PO SCH ×3 (08:11→20:32)
[2021-06-08] MEDS: Hydroxyurea 500 MG CAPSULE PO SCH (08:11)
[2021-06-08] MEDS: rOPINIRole 1 MG TABLET PO SCH ×2 (08:11→20:31)
[2021-06-08] MEDS: Cholecalciferol (D-3) 1,000 UNIT (25MCG) TABLET PO SCH (08:11)
[2021-06-08] MEDS: Famotidine 20 MG TABLET PO SCH (08:11)
[2021-06-08] MEDS: allopurinoL 100 MG TABLET PO SCH (08:12)
[2021-06-08] MEDS: Metoprolol XL (24 HR) Succ 25 MG TAB.ER.24H PO SCH (08:12)
[2021-06-08] MEDS: Insulin LISPRO 300 UNITS/3 ML VIAL SUBQ SCH ×3 (08:13→16:41)
[2021-06-08 09:19] LABS: INR 1.2; Prothrombin Time 13.9 Seconds (9.4-12.1)
[2021-06-08 09:21] LABS: Activated Partial Thrombo Time 31.2 Seconds (26.0-36.0)
[2021-06-08] MEDS ORDERED: Milk and Molasses Enema 200 ML RC ONE (09:30)
[2021-06-08] MEDS ORDERED: cefTRIAXone 2,000 MG in 0.9 % Sodium Chloride 20 ML IVP SCH (10:00)
[2021-06-08 12:06] LABS: Hematocrit 21.7 % (37.5-50.1); Hemoglobin 7.5 g/dL (12.9-16.9)
[2021-06-08] MEDS ORDERED: Acetaminophen 325 MG TABLET PO ONE (12:55)
[2021-06-08] MEDS ORDERED: Cefepime HCl 1,000 MG in 0.9 % Sodium Chloride Mini Bag 100 ML IVPB ONE (13:33)
[2021-06-08] MEDS ORDERED: 0.9 % Sodium Chloride 500 ML IVC ONE (13:46)
[2021-06-08 17:01] LABS: Bilirubin,Urine Negative (Negative); Blood,Urine Large (Negative); Clarity,Urine Turbid (Clear); Color,Urine Light-Orange (Yellow); Glucose,Urine (UA) Normal (Normal); Ketones,Urine Negative (Negative); Leukocyte Esterase,Urine Small (Negative); Mucus,Urine Few per lpf (None-Few); Nitrite,Urine Negative (Negative); Protein,Urine 200 mg/dL (Neg-Trace); RBC,Urine TNTC per hpf (0-3); Specific Gravity,Urine 1.017 (1.010-1.025); Squamous Epithelial Cell,Urine Few per hpf (None-Few); Urobilinogen,Urine Normal (Normal); WBC,Urine 15-30 per hpf (0-3)
[2021-06-08] MEDS: *HR* HYDROmorphone 2 MG TABLET PO PRN (20:31)
[2021-06-08 20:40] LABS: Basophils % 0.7 %; Hematocrit 19.7 % (37.5-50.1); Hemoglobin 6.7 g/dL (12.9-16.9); Immature Granulocytes % 2.9 % (0-4); Immature Platelets 3.5 % (1.1-6.1); Lymphocytes # 0.2 K/mcL (0.6-4.6); Lymphocytes % 4.8 %; Mean Corpuscular Hemoglobin 29.9 pg (28.0-33.3); Mean Corpuscular Volume 87.9 fL (83.0-100.0); Mean Platelet Volume 10.4 fL (9.4-12.4); Monocytes # 0.2 K/mcL (0.0-1.3); Monocytes % 3.9 %; Nucleated Red Blood Cells 0.4 /100 WBC (0); Red Blood Count 2.24 M/mcL (4.19-5.50); Red Cell Distribution Width 16.4 % (11.5-14.5); Segmented Neutrophils % 87.7 %; White Blood Count 4.6 K/mcL (4.3-11.1)
[2021-06-08 20:42] LABS: Platelet Count 54 K/mcL (140-400)
[2021-06-09] MEDS: *HR* HYDROmorphone (PF) 1 MG/ML SYRINGE IVP PRN ×3 (01:35→23:39)
[2021-06-09 02:02] LABS: Hemoglobin 6.7 g/dL (12.9-16.9)
[2021-06-09 02:04] LABS: Basophils % 0.9 %; Eosinophils % 0.3 %; Hematocrit 20.4 % (37.5-50.1); Immature Granulocytes % 2.6 % (0-4); Immature Platelets 4.5 % (1.1-6.1); Lymphocytes # 0.3 K/mcL (0.6-4.6); Lymphocytes % 9.7 %; Mean Corpuscular HGB Conc 32.8 g/dL (31.6-35.5); Mean Corpuscular Hemoglobin 29.8 pg (28.0-33.3); Mean Corpuscular Volume 90.7 fL (83.0-100.0); Mean Platelet Volume 11.7 fL (9.4-12.4); Monocytes # 0.1 K/mcL (0.0-1.3); Monocytes % 3.2 %; Neutrophils # 2.9 K/mcL (1.6-8.9); Nucleated Red Blood Cells 0.6 /100 WBC (0); Red Blood Count 2.25 M/mcL (4.19-5.50); Red Cell Distribution Width 16.5 % (11.5-14.5); Segmented Neutrophils % 83.3 %; White Blood Count 3.5 K/mcL (4.3-11.1)
[2021-06-09 02:05] LABS: Platelet Count 55 K/mcL (140-400)
[2021-06-09 02:27] LABS: Calcium 7.4 mg/dL (8.6-10.3); Magnesium 1.5 mg/dL (1.6-2.6); Potassium 4.3 mEq/L (3.5-5.1)
[2021-06-09 02:47] LABS: Ferritin > 1500 ng/mL (20-250); Iron < 10 mcg/dL (65-175); Transferrin 129 mg/dL (203-362)
[2021-06-09] MEDS: Insulin LISPRO 300 UNITS/3 ML VIAL SUBQ SCH ×3 (07:44→16:26)
[2021-06-09] MEDS: *HR* HYDROmorphone 2 MG TABLET PO PRN ×3 (08:13→20:49)
[2021-06-09] MEDS: Famotidine 20 MG TABLET PO SCH (08:14)
[2021-06-09] MEDS: rOPINIRole 1 MG TABLET PO SCH ×2 (08:14→19:57)
[2021-06-09] MEDS: cefTRIAXone 2,000 MG in 0.9 % Sodium Chloride Mini Bag 100 ML IVPB SCH (08:15)
[2021-06-09] MEDS: Cholecalciferol (D-3) 1,000 UNIT (25MCG) TABLET PO SCH (08:15)
[2021-06-09] MEDS: Gabapentin 100 MG CAPSULE PO SCH ×3 (08:15→19:57)
[2021-06-09] MEDS: allopurinoL 100 MG TABLET PO SCH (08:15)
[2021-06-09] MEDS: Metoprolol XL (24 HR) Succ 25 MG TAB.ER.24H PO SCH (08:16)
[2021-06-09] MEDS ORDERED: *HR* Heparin 10,000 UNIT/10 ML VIAL IV PRN (08:26)
[2021-06-09] MEDS ORDERED: 0.9 % Sodium Chloride 250 ML IVC PRN (08:26)
[2021-06-09] MEDS ORDERED: 0.9 % Sodium Chloride 1,000 ML PRIME SCH (08:30)
[2021-06-09] MEDS ORDERED: Cefepime HCl 500 MG in 0.9 % Sodium Chloride Mini Bag 100 ML IVPB SCH (09:00)
[2021-06-09] MEDS ORDERED: Iron Sucrose Complex 400 MG in 0.9 % Sodium Chloride 250 ML IVPB ONE (10:25)
[2021-06-09 20:26] LABS: Hematocrit 24.9 % (37.5-50.1); Hemoglobin 8.2 g/dL (12.9-16.9)
[2021-06-10] MEDS: *HR* HYDROmorphone 2 MG TABLET PO PRN ×4 (04:14→19:51)
[2021-06-10 04:43] LABS: Basophils % 0.6 %; Hemoglobin 7.4 g/dL (12.9-16.9); Mean Corpuscular Volume 91.1 fL (83.0-100.0); Red Cell Distribution Width 15.9 % (11.5-14.5)
[2021-06-10 04:45] LABS: Hematocrit 22.5 % (37.5-50.1); Immature Platelets 3.2 % (1.1-6.1); Lymphocytes # 0.2 K/mcL (0.6-4.6); Lymphocytes % 5.7 %; Mean Corpuscular HGB Conc 32.9 g/dL (31.6-35.5); Mean Platelet Volume 10.9 fL (9.4-12.4); Monocytes # 0.1 K/mcL (0.0-1.3); Monocytes % 2.4 %; Neutrophils # 2.9 K/mcL (1.6-8.9); Nucleated Red Blood Cells 0.6 /100 WBC (0); Platelet Count 84 K/mcL (140-400); Red Blood Count 2.47 M/mcL (4.19-5.50); Segmented Neutrophils % 88.3 %; White Blood Count 3.3 K/mcL (4.3-11.1)
[2021-06-10] MEDS: cefTRIAXone 2,000 MG in 0.9 % Sodium Chloride Mini Bag 100 ML IVPB SCH (07:55)
[2021-06-10] MEDS: Metoprolol XL (24 HR) Succ 25 MG TAB.ER.24H PO SCH (07:56)
[2021-06-10] MEDS: Insulin LISPRO 300 UNITS/3 ML VIAL SUBQ SCH ×3 (07:56→16:28)
[2021-06-10] MEDS: Cholecalciferol (D-3) 1,000 UNIT (25MCG) TABLET PO SCH (07:56)
[2021-06-10] MEDS: allopurinoL 100 MG TABLET PO SCH (07:57)
[2021-06-10] MEDS: Famotidine 20 MG TABLET PO SCH (07:57)
[2021-06-10] MEDS: rOPINIRole 1 MG TABLET PO SCH ×2 (07:57→19:52)
[2021-06-10] MEDS: Gabapentin 100 MG CAPSULE PO SCH ×3 (08:14→19:52)
[2021-06-10 08:31] LABS: Calcium 7.6 mg/dL (8.6-10.3); Potassium 4.2 mEq/L (3.5-5.1)
[2021-06-10] MEDS: *HR* HYDROmorphone (PF) 1 MG/ML SYRINGE IVP PRN (11:06)
[2021-06-11] MEDS: *HR* HYDROmorphone 2 MG TABLET PO PRN (00:20)
[2021-06-11 03:31] LABS: Basophils % 1.1 %; Hematocrit 20.8 % (37.5-50.1); Immature Granulocytes % 1.8 % (0-4); Immature Platelets 3.4 % (1.1-6.1); Lymphocytes # 0.3 K/mcL (0.6-4.6); Lymphocytes % 10.7 %; Mean Corpuscular HGB Conc 33.7 g/dL (31.6-35.5); Mean Corpuscular Volume 89.3 fL (83.0-100.0); Mean Platelet Volume 10.4 fL (9.4-12.4); Monocytes # 0.1 K/mcL (0.0-1.3); Monocytes % 3.2 %; Neutrophils # 2.3 K/mcL (1.6-8.9); Nucleated Red Blood Cells 0.7 /100 WBC (0); Red Blood Count 2.33 M/mcL (4.19-5.50); Red Cell Distribution Width 16.1 % (11.5-14.5); Segmented Neutrophils % 83.2 %; White Blood Count 2.8 K/mcL (4.3-11.1)
[2021-06-11 03:36] LABS: Platelet Count 87 K/mcL (140-400)
[2021-06-11 03:59] LABS: Potassium 4.2 mEq/L (3.5-5.1)
[2021-06-11] MEDS: rOPINIRole 1 MG TABLET PO SCH ×2 (08:31→21:10)
[2021-06-11] MEDS: Insulin LISPRO 300 UNITS/3 ML VIAL SUBQ SCH ×3 (08:31→15:51)
[2021-06-11] MEDS: Famotidine 20 MG TABLET PO SCH (08:31)
[2021-06-11] MEDS: Gabapentin 100 MG CAPSULE PO SCH ×3 (08:32→21:10)
[2021-06-11] MEDS: allopurinoL 100 MG TABLET PO SCH (08:32)
[2021-06-11] MEDS: cefTRIAXone 2,000 MG in 0.9 % Sodium Chloride Mini Bag 100 ML IVPB SCH (08:32)
[2021-06-11] MEDS: Metoprolol XL (24 HR) Succ 25 MG TAB.ER.24H PO SCH (08:32)
[2021-06-11] MEDS: Cholecalciferol (D-3) 1,000 UNIT (25MCG) TABLET PO SCH (08:32)
[2021-06-11 12:49] LABS: Hematocrit 20.4 % (37.5-50.1); Hemoglobin 6.8 g/dL (12.9-16.9)
[2021-06-11] MEDS ORDERED: 0.9 % Sodium Chloride 250 ML IVC SCH (13:15)
[2021-06-11] MEDS ORDERED: 0.9 % Sodium Chloride 250 ML ONE (15:22)
[2021-06-11 20:14] LABS: Hematocrit 23.6 % (37.5-50.1); Hemoglobin 8.1 g/dL (12.9-16.9)
[2021-06-11] MEDS ORDERED: Acetaminophen IV 1,000 MG/100 ML BAG IVPB ONE (22:44)
[2021-06-12] MEDS: *HR* HYDROmorphone 2 MG TABLET PO PRN (04:37)
[2021-06-12 05:21] LABS: Calcium 7.8 mg/dL (8.6-10.3); Potassium 4.2 mEq/L (3.5-5.1)
[2021-06-12 05:22] LABS: Hemoglobin 6.7 g/dL (12.9-16.9)
[2021-06-12 05:24] LABS: Basophils % 1.4 %; Hematocrit 19.7 % (37.5-50.1); Immature Platelets 1.9 % (1.1-6.1); Lymphocytes # 0.3 K/mcL (0.6-4.6); Lymphocytes % 8.5 %; Mean Corpuscular Hemoglobin 30.3 pg (28.0-33.3); Mean Corpuscular Volume 89.1 fL (83.0-100.0); Monocytes # 0.2 K/mcL (0.0-1.3); Monocytes % 7.8 %; Red Blood Count 2.21 M/mcL (4.19-5.50); Red Cell Distribution Width 15.9 % (11.5-14.5); Segmented Neutrophils % 80.3 %; White Blood Count 2.9 K/mcL (4.3-11.1)
[2021-06-12 05:31] LABS: Neutrophils # 2.3 K/mcL (1.6-8.9); Platelet Count 85 K/mcL (140-400); Platelet Estimate Decreased (Normal)
[2021-06-12] MEDS: rOPINIRole 1 MG TABLET PO SCH ×2 (09:45→20:05)
[2021-06-12] MEDS: Renal Vitamin 1 CAP CAPSULE PO SCH (09:45)
[2021-06-12] MEDS: allopurinoL 100 MG TABLET PO SCH (09:45)
[2021-06-12] MEDS: Gabapentin 100 MG CAPSULE PO SCH ×3 (09:45→20:05)
[2021-06-12] MEDS: Cholecalciferol (D-3) 1,000 UNIT (25MCG) TABLET PO SCH (09:45)
[2021-06-12] MEDS: Metoprolol XL (24 HR) Succ 25 MG TAB.ER.24H PO SCH (09:46)
[2021-06-12] MEDS: cefTRIAXone 2,000 MG in 0.9 % Sodium Chloride Mini Bag 100 ML IVPB SCH (09:46)
[2021-06-12] MEDS: Famotidine 20 MG TABLET PO SCH (09:46)
[2021-06-12] MEDS: Insulin LISPRO 300 UNITS/3 ML VIAL SUBQ SCH ×3 (09:47→16:00)
[2021-06-12] MEDS ORDERED: 0.9 % Sodium Chloride 250 ML IVC SCH (10:00)
[2021-06-12] MEDS ORDERED: Acetaminophen 325 MG TABLET PO PRN (14:54)
[2021-06-12] MEDS ORDERED: 0.9 % Sodium Chloride 500 ML IVC ONE (17:09)
[2021-06-12 17:36] LABS: Basophils % 0.7 %; Hematocrit 22.6 % (37.5-50.1); Hemoglobin 7.6 g/dL (12.9-16.9); Lymphocytes % 1.4 %; Mean Corpuscular HGB Conc 33.6 g/dL (31.6-35.5); Mean Corpuscular Hemoglobin 29.9 pg (28.0-33.3); Mean Platelet Volume 10.3 fL (9.4-12.4); Monocytes # 0.1 K/mcL (0.0-1.3); Monocytes % 2.4 %; Neutrophils # 2.7 K/mcL (1.6-8.9); Red Blood Count 2.54 M/mcL (4.19-5.50); Red Cell Distribution Width 16.7 % (11.5-14.5); Segmented Neutrophils % 94.5 %; White Blood Count 2.9 K/mcL (4.3-11.1)
[2021-06-12 17:38] LABS: Platelet Count 64 K/mcL (140-400)
[2021-06-12] MEDS ORDERED: Azithromycin 500 MG in 0.9 % Sodium Chloride 250 ML IVPB SCH (18:00)
[2021-06-12] MEDS ORDERED: Cefepime HCl 1,000 MG in 0.9 % Sodium Chloride Mini Bag 100 ML IVPB SCH (18:00)
[2021-06-12 18:06] LABS: Platelet Estimate Decreased (Normal)
[2021-06-12 18:21] LABS: Amorphous Sediment,Urine Few per hpf (None-Few); Bacteria,Urine Few per hpf (None-Few); Bilirubin,Urine Negative (Negative); Blood,Urine Large (Negative); Clarity,Urine Turbid (Clear); Color,Urine Yellow (Yellow); Glucose,Urine (UA) 50 mg/dL (Normal); Granular Casts,Urine Few per lpf (None Seen); Hyaline Casts,Urine Few per lpf (None Seen); Ketones,Urine Negative (Negative); Leukocyte Esterase,Urine Negative (Negative); Mucus,Urine Few per lpf (None-Few); Nitrite,Urine Negative (Negative); Protein,Urine 200 mg/dL (Neg-Trace); RBC,Urine TNTC per hpf (0-3); Red Blood Cell Casts,Urine Few per lpf (None Seen); Specific Gravity,Urine 1.017 (1.010-1.025); Urobilinogen,Urine Normal (Normal)
[2021-06-12] MEDS ORDERED: 0.9 % Sodium Chloride 1,000 ML IVC ONE ×2 (19:24→23:58)
[2021-06-13 06:07] LABS: Basophils % 0.9 %; Mean Corpuscular Volume 89.2 fL (83.0-100.0); Red Cell Distribution Width 17.2 % (11.5-14.5)
[2021-06-13 06:09] LABS: Hematocrit 20.6 % (37.5-50.1); Immature Granulocytes % 0.9 % (0-4); Immature Platelets 3.4 % (1.1-6.1); Lymphocytes # 0.2 K/mcL (0.6-4.6); Lymphocytes % 4.9 %; Mean Corpuscular Hemoglobin 30.3 pg (28.0-33.3); Mean Platelet Volume 11.6 fL (9.4-12.4); Monocytes # 0.4 K/mcL (0.0-1.3); Neutrophils # 3.8 K/mcL (1.6-8.9); Red Blood Count 2.31 M/mcL (4.19-5.50); Segmented Neutrophils % 84.3 %; White Blood Count 4.5 K/mcL (4.3-11.1)
[2021-06-13 06:16] LABS: Platelet Count 61 K/mcL (140-400)
[2021-06-13 06:25] LABS: Calcium 7.5 mg/dL (8.6-10.3); Potassium 4.6 mEq/L (3.5-5.1)
[2021-06-13 07:20] LABS: Anisocytosis 1+ (Not Present); Platelet Estimate Decreased (Normal)
[2021-06-13] MEDS ORDERED: 0.9 % Sodium Chloride 250 ML IVC PRN (08:50)
[2021-06-13] MEDS ORDERED: *HR* Heparin 10,000 UNIT/10 ML VIAL IV PRN ×2 (08:50)
[2021-06-13] MEDS: Cholecalciferol (D-3) 1,000 UNIT (25MCG) TABLET PO SCH (09:14)
[2021-06-13] MEDS: allopurinoL 100 MG TABLET PO SCH (09:14)
[2021-06-13] MEDS: Renal Vitamin 1 CAP CAPSULE PO SCH (09:14)
[2021-06-13] MEDS: Gabapentin 100 MG CAPSULE PO SCH (09:14)
[2021-06-13] MEDS: rOPINIRole 1 MG TABLET PO SCH (09:14)
[2021-06-13] MEDS: Famotidine 20 MG TABLET PO SCH (09:14)
[2021-06-13] MEDS: Insulin LISPRO 300 UNITS/3 ML VIAL SUBQ SCH ×2 (09:16→12:15)
[2021-06-13] MEDS: Metoprolol XL (24 HR) Succ 25 MG TAB.ER.24H PO SCH (09:41)
[2021-06-13 09:44] VITALS: PULSE 76; O2SAT 99
[2021-06-13 09:51] LABS: Hematocrit 22.7 % (37.5-50.1); Hemoglobin 7.4 g/dL (12.9-16.9)
[2021-06-13] MEDS ORDERED: Vancomycin 1 EACH in 0.9 % Sodium Chloride 250 ML IVPB PRN (10:20)
[2021-06-13 11:01] VITALS: TEMP 97.6
[2021-06-13] MEDS ORDERED: *HR* OxyCODONE/APAP 5/325 TABLET PO PRN (12:48)
[2021-06-13 13:33] LABS: CTX-M ESBL Gene Not Detected (Not Detect); IMP Carbapenem-Resist Gene Not Detected (Not Detect); NDM Carbapenem-Resist Gene Not Detected (Not Detect); OXA-48-like Carbap-Resist Gene Not Detected (Not Detect); VIM Carbapenem-Resist Gene Not Detected (Not Detect); blaKPC Carbapenem-Resist Gene Not Detected (Not Detect)
[2021-06-13 13:34] LABS: A.calcoaceticus-baumannii cplx Not Detected (Not Detect); Bacteroides fragilis by PCR Not Detected (Not Detect); Candida albicans by PCR Not Detected (Not Detect); Candida auris by PCR Not Detected (Not Detect); Candida glabrata by PCR Not Detected (Not Detect); Candida krusei by PCR Not Detected (Not Detect); Candida parapsilosis by PCR Not Detected (Not Detect); Candida tropicalis by PCR Not Detected (Not Detect); Crypto. neoformans/gattii PCR Not Detected (Not Detect); Enterobacter cloacae Cmplx PCR Not Detected (Not Detect); Enterococcus faecalis by PCR Not Detected (Not Detect); Enterococcus faecium by PCR Not Detected (Not Detect); Escherichia coli by PCR Not Detected (Not Detect); Klebs. pneumoniae group by PCR DETECTED (Not Detect); Klebsiella aerogenes by PCR Not Detected (Not Detect); Klebsiella oxytoca by PCR Not Detected (Not Detect); Proteus by PCR Not Detected (Not Detect); Pseudomonas aeruginosa by PCR Not Detected (Not Detect); Salmonella species by PCR Not Detected (Not Detect); Serratia marcescens by PCR Not Detected (Not Detect); Staph epidermidis by PCR Not Detected (Not Detect); Staph lugdunensis by PCR Not Detected (Not Detect); Staphylococcus aureus by PCR Not Detected (Not Detect); Staphylococcus by PCR Not Detected (Not Detect); Stenotrophomonas maltophilia Not Detected (Not Detect); Streptococcus agalactiae(B)PCR Not Detected (Not Detect); Streptococcus by PCR Not Detected (Not Detect); Streptococcus pneumoniae PCR Not Detected (Not Detect); Streptococcus pyogenes (A) PCR Not Detected (Not Detect); mcr-1 Colistin-Resist Gene Not Detected (Not Detect)
[2021-06-13 16:51] VITALS: BP 130/70
[2021-06-13] MEDS ORDERED: Azithromycin 250 MG TABLET PO SCH ×2 (18:00)
[2021-06-16 01:15] LABS: A.calcoaceticus-baumannii cplx Not Detected (Not Detect); Bacteroides fragilis by PCR Not Detected (Not Detect); CTX-M ESBL Gene Not Detected (Not Detect); Enterobacter cloacae Cmplx PCR Not Detected (Not Detect); Enterobacterales by PCR Not Detected (Not Detect); Enterococcus faecalis by PCR Not Detected (Not Detect); Enterococcus faecium by PCR Not Detected (Not Detect); Escherichia coli by PCR Not Detected (Not Detect); IMP Carbapenem-Resist Gene Not Detected (Not Detect); Klebsiella aerogenes by PCR Not Detected (Not Detect); NDM Carbapenem-Resist Gene Not Detected (Not Detect); OXA-48-like Carbap-Resist Gene Not Detected (Not Detect); Staph epidermidis by PCR Not Detected (Not Detect); Staph lugdunensis by PCR Not Detected (Not Detect); Staphylococcus aureus by PCR Not Detected (Not Detect); Staphylococcus by PCR Not Detected (Not Detect); Streptococcus agalactiae(B)PCR Not Detected (Not Detect); Streptococcus by PCR Not Detected (Not Detect); Streptococcus pneumoniae PCR Not Detected (Not Detect); Streptococcus pyogenes (A) PCR Not Detected (Not Detect); VIM Carbapenem-Resist Gene Not Detected (Not Detect); blaKPC Carbapenem-Resist Gene Not Detected (Not Detect); mcr-1 Colistin-Resist Gene Not Detected (Not Detect)
[2021-06-16 01:16] LABS: Candida albicans by PCR Not Detected (Not Detect); Candida auris by PCR Not Detected (Not Detect); Candida glabrata by PCR Not Detected (Not Detect); Candida krusei by PCR Not Detected (Not Detect); Candida parapsilosis by PCR Not Detected (Not Detect); Candida tropicalis by PCR Not Detected (Not Detect); Crypto. neoformans/gattii PCR Not Detected (Not Detect); Klebs. pneumoniae group by PCR DETECTED (Not Detect); Klebsiella oxytoca by PCR Not Detected (Not Detect); Proteus by PCR Not Detected (Not Detect); Pseudomonas aeruginosa by PCR Not Detected (Not Detect); Salmonella species by PCR Not Detected (Not Detect); Serratia marcescens by PCR Not Detected (Not Detect); Stenotrophomonas maltophilia Not Detected (Not Detect)
== END 2021-06-13 15:48 | disposition left against medical advice (07) | DRG 856 ==
LOC: 2NNU → SUATTDRO 06-01 11:37 → 2ANU 06-02 14:20
PROVIDERS: ADMIT Family Medicine; ATTEND Internal Medicine

== ENCOUNTER 2021-06-16 17:26 | Inpatient (IN) ==
[2021-06-16] MEDS ORDERED: Ondansetron 4 MG/2 ML VIAL IVP PRN (20:13)
[2021-06-16] MEDS ORDERED: Acetaminophen 325 MG TABLET PO PRN (20:13)
[2021-06-16] MEDS ORDERED: Naloxone 0.4 MG/ML INJ IVP PRN (20:13)
[2021-06-16] MEDS ORDERED: *HR* HYDROcodone/Acet 5/325 mg TABLET PO PRN (20:13)
[2021-06-16] MEDS ORDERED: *HR* Promethazine 25 MG/ML VIAL IM PRN (20:13)
[2021-06-16] MEDS ORDERED: Vancomycin 1,250 MG/262.5 ML IV.SOLN IVPB ONE (22:00)
[2021-06-16] MEDS ORDERED: Vancomycin 1 EACH in 0.9 % Sodium Chloride 250 ML IVPB PRN (22:00)
[2021-06-16] MEDS: Gabapentin 100 MG CAPSULE PO SCH (22:24)
[2021-06-16] MEDS ORDERED: Dextrose 4 GM Chewable Tablets PO PRN ×2 (22:33)
[2021-06-16] MEDS ORDERED: D5% in Water 1,000 ML IVC PRN (22:33)
[2021-06-17] MEDS: Insulin LISPRO 300 UNITS/3 ML VIAL SUBQ SCH ×4 (00:17→16:29)
[2021-06-17 01:35] LABS: Basophils # 0.1 K/mcL (0.0-0.2); Eosinophils % 0.4 %; Hematocrit 22.2 % (37.5-50.1); Hemoglobin 7.2 g/dL (12.9-16.9); Immature Granulocytes % 0.8 % (0-4); Lymphocytes # 0.4 K/mcL (0.6-4.6); Mean Corpuscular HGB Conc 32.4 g/dL (31.6-35.5); Mean Corpuscular Hemoglobin 30.4 pg (28.0-33.3); Mean Corpuscular Volume 93.7 fL (83.0-100.0); Mean Platelet Volume 10.1 fL (9.4-12.4); Monocytes # 0.4 K/mcL (0.0-1.3); Monocytes % 7.6 %; Platelet Count 106 K/mcL (140-400); Red Blood Count 2.37 M/mcL (4.19-5.50); Red Cell Distribution Width 17.5 % (11.5-14.5); Segmented Neutrophils % 81.2 %; White Blood Count 4.9 K/mcL (4.3-11.1)
[2021-06-17 01:51] LABS: INR 1.3; Prothrombin Time 14.8 Seconds (9.4-12.1)
[2021-06-17 01:58] LABS: BUN/Creatinine Ratio 18 (6-26); Blood Urea Nitrogen 24 mg/dL (8-23); Calcium 7.5 mg/dL (8.6-10.3); Carbon Dioxide 29 mEq/L (23-29); Chloride 103 mEq/L (98-107); Chol/HDL Ratio 3.3 (0-4.9); Cholesterol 75 mg/dL (< 200); Glucose 185 mg/dL (70-105); HDL Cholesterol 23 mg/dL (40-59); LDL Cholesterol,Calculated 35 mg/dL (< 100); Magnesium 1.6 mg/dL (1.6-2.6); Osmolality,Calculated 293 (280-300); Potassium 3.4 mEq/L (3.5-5.1); Sodium 137 mEq/L (136-145); Triglycerides 87 mg/dL (< 150); eGFR For African Americans > 60 (> 60); eGFR For Non-African Americans 52 (> 60)
[2021-06-17] MEDS: *HR* OxyCODONE Immed Rel 5 MG TABLET PO PRN ×2 (06:20→14:54)
[2021-06-17] MEDS: Cefepime HCl 1,000 MG in 0.9 % Sodium Chloride 10 ML IVP SCH (08:10)
[2021-06-17] MEDS: Gabapentin 100 MG CAPSULE PO SCH ×3 (08:10→20:05)
[2021-06-17] MEDS: Metoprolol XL (24 HR) Succ 25 MG TAB.ER.24H PO SCH (08:10)
[2021-06-17] MEDS ORDERED: *HR* Heparin 10,000 UNIT/10 ML VIAL IV PRN (08:43)
[2021-06-17] MEDS ORDERED: Insulin DETEMIR 100 UNIT/ML X5UNITS SUBQ SCH (21:00)
[2021-06-18] MEDS: Insulin LISPRO 300 UNITS/3 ML VIAL SUBQ SCH ×4 (00:31→17:40)
[2021-06-18 02:20] LABS: Hematocrit 23.6 % (37.5-50.1); Hemoglobin 7.3 g/dL (12.9-16.9); Mean Corpuscular HGB Conc 30.9 g/dL (31.6-35.5); Mean Corpuscular Hemoglobin 29.1 pg (28.0-33.3); Mean Platelet Volume 10.2 fL (9.4-12.4); Platelet Count 149 K/mcL (140-400); Red Blood Count 2.51 M/mcL (4.19-5.50); Red Cell Distribution Width 17.4 % (11.5-14.5); White Blood Count 6.7 K/mcL (4.3-11.1)
[2021-06-18 02:25] LABS: Phosphorous 3.7 mg/dL (2.7-4.5)
[2021-06-18 02:41] LABS: Calcium 7.8 mg/dL (8.6-10.3); Potassium 4.4 mEq/L (3.5-5.1)
[2021-06-18] MEDS: *HR* OxyCODONE Immed Rel 5 MG TABLET PO PRN (02:50)
[2021-06-18] MEDS: *HR* Dextrose 50 % in Water (Syg) 50 ML SYRINGE IVP PRN (06:24)
[2021-06-18] MEDS: Cefepime HCl 1,000 MG in 0.9 % Sodium Chloride 10 ML IVP SCH (07:10)
[2021-06-18] MEDS: Gabapentin 100 MG CAPSULE PO SCH ×3 (07:10→19:45)
[2021-06-18] MEDS: Metoprolol XL (24 HR) Succ 25 MG TAB.ER.24H PO SCH (07:10)
[2021-06-18] MEDS ORDERED: Nitroglycerin 0.4 MG TAB.SUBL SL PRN (07:49)
[2021-06-18] MEDS: rOPINIRole 1 MG TABLET PO SCH ×2 (08:29→19:45)
[2021-06-18] MEDS: Renal Vitamin 1 CAP CAPSULE PO SCH (08:29)
[2021-06-18] MEDS: Famotidine 20 MG TABLET PO SCH (08:29)
[2021-06-18] MEDS: Cholecalciferol (D-3) 1,000 UNIT (25MCG) TABLET PO SCH (08:29)
[2021-06-18] MEDS: allopurinoL 100 MG TABLET PO SCH (08:30)
[2021-06-18] MEDS: Insulin DETEMIR 100 UNIT/ML X5UNITS SUBQ SCH (21:44)
[2021-06-19] MEDS: Insulin LISPRO 300 UNITS/3 ML VIAL SUBQ SCH ×4 (01:35→17:00)
[2021-06-19 04:11] LABS: Basophils # 0.1 K/mcL (0.0-0.2); Basophils % 1.4 %; Eosinophils # 0.1 K/mcL (0.0-0.6); Eosinophils % 0.9 %; Hematocrit 26.9 % (37.5-50.1); Hemoglobin 8.3 g/dL (12.9-16.9); Immature Granulocytes % 0.9 % (0-4); Lymphocytes # 0.8 K/mcL (0.6-4.6); Lymphocytes % 13.7 %; Mean Corpuscular HGB Conc 30.9 g/dL (31.6-35.5); Mean Corpuscular Hemoglobin 29.6 pg (28.0-33.3); Mean Corpuscular Volume 96.1 fL (83.0-100.0); Mean Platelet Volume 10.3 fL (9.4-12.4); Monocytes # 0.4 K/mcL (0.0-1.3); Monocytes % 6.8 %; Neutrophils # 4.4 K/mcL (1.6-8.9); Platelet Count 177 K/mcL (140-400); Red Cell Distribution Width 17.9 % (11.5-14.5); Segmented Neutrophils % 76.3 %; White Blood Count 5.7 K/mcL (4.3-11.1)
[2021-06-19 04:28] LABS: Calcium 8.1 mg/dL (8.6-10.3); Potassium 4.4 mEq/L (3.5-5.1)
[2021-06-19] MEDS: Gabapentin 100 MG CAPSULE PO SCH ×3 (10:06→20:32)
[2021-06-19] MEDS: Cholecalciferol (D-3) 1,000 UNIT (25MCG) TABLET PO SCH (10:06)
[2021-06-19] MEDS: rOPINIRole 1 MG TABLET PO SCH ×2 (10:06→20:32)
[2021-06-19] MEDS: Famotidine 20 MG TABLET PO SCH (10:06)
[2021-06-19] MEDS: Cefepime HCl 1,000 MG in 0.9 % Sodium Chloride 10 ML IVP SCH (10:07)
[2021-06-19] MEDS: Renal Vitamin 1 CAP CAPSULE PO SCH (10:07)
[2021-06-19] MEDS: allopurinoL 100 MG TABLET PO SCH (10:07)
[2021-06-19] MEDS: Metoprolol XL (24 HR) Succ 25 MG TAB.ER.24H PO SCH (10:14)
[2021-06-19] MEDS: Insulin DETEMIR 100 UNIT/ML X5UNITS SUBQ SCH (20:33)
[2021-06-20] MEDS: Insulin LISPRO 300 UNITS/3 ML VIAL SUBQ SCH ×4 (00:32→17:34)
[2021-06-20] MEDS: polyethylene glycoL 3350 17 GM POWD.PACK PO PRN (01:51)
[2021-06-20] MEDS ORDERED: 0.9 % Sodium Chloride 250 ML IVC PRN ×2 (06:43→08:54)
[2021-06-20] MEDS ORDERED: 0.9 % Sodium Chloride 1,000 ML PRIME SCH (06:45)
[2021-06-20 07:30] LABS: Hematocrit 25.6 % (37.5-50.1); Hemoglobin 8.1 g/dL (12.9-16.9); Mean Corpuscular HGB Conc 31.6 g/dL (31.6-35.5); Mean Corpuscular Volume 94.8 fL (83.0-100.0); Mean Platelet Volume 9.5 fL (9.4-12.4); Platelet Count 169 K/mcL (140-400); White Blood Count 4.3 K/mcL (4.3-11.1)
[2021-06-20 08:05] LABS: Calcium 8.1 mg/dL (8.6-10.3); Potassium 4.6 mEq/L (3.5-5.1)
[2021-06-20 08:21] LABS: Lymphocytes # 0.5 K/mcL (0.6-4.6); Monocytes # 0.1 K/mcL (0.0-1.3); Neutrophils # 3.7 K/mcL (1.6-8.9)
[2021-06-20] MEDS ORDERED: *HR* Heparin 10,000 UNIT/10 ML VIAL IV PRN (08:54)
[2021-06-20] MEDS: Cefepime HCl 1,000 MG in 0.9 % Sodium Chloride 10 ML IVP SCH ×2 (10:38→17:13)
[2021-06-20] MEDS: Cholecalciferol (D-3) 1,000 UNIT (25MCG) TABLET PO SCH (10:43)
[2021-06-20] MEDS: Renal Vitamin 1 CAP CAPSULE PO SCH (10:43)
[2021-06-20] MEDS: rOPINIRole 1 MG TABLET PO SCH ×2 (10:44→21:16)
[2021-06-20] MEDS: Famotidine 20 MG TABLET PO SCH (10:44)
[2021-06-20] MEDS: allopurinoL 100 MG TABLET PO SCH (10:44)
[2021-06-20] MEDS: Gabapentin 100 MG CAPSULE PO SCH ×3 (10:44→21:16)
[2021-06-20] MEDS: Metoprolol XL (24 HR) Succ 25 MG TAB.ER.24H PO SCH (10:45)
[2021-06-20] MEDS ORDERED: Bisacodyl 10 MG RECTAL SUPPOSITORY RC ONE (17:27)
[2021-06-20] MEDS: Insulin DETEMIR 100 UNIT/ML X5UNITS SUBQ SCH (21:16)
[2021-06-21] MEDS: polyethylene glycoL 3350 17 GM POWD.PACK PO PRN (00:53)
[2021-06-21] MEDS: Insulin LISPRO 300 UNITS/3 ML VIAL SUBQ SCH ×4 (01:02→16:03)
[2021-06-21 02:03] LABS: Basophils # 0.1 K/mcL (0.0-0.2); Basophils % 1.4 %; Eosinophils % 0.9 %; Hematocrit 25.5 % (37.5-50.1); Hemoglobin 8.1 g/dL (12.9-16.9); Immature Granulocytes % 1.1 % (0-4); Lymphocytes # 0.4 K/mcL (0.6-4.6); Lymphocytes % 12.6 %; Mean Corpuscular HGB Conc 31.8 g/dL (31.6-35.5); Mean Corpuscular Hemoglobin 29.7 pg (28.0-33.3); Mean Corpuscular Volume 93.4 fL (83.0-100.0); Mean Platelet Volume 9.8 fL (9.4-12.4); Monocytes # 0.3 K/mcL (0.0-1.3); Monocytes % 9.5 %; Neutrophils # 2.6 K/mcL (1.6-8.9); Platelet Count 167 K/mcL (140-400); Red Blood Count 2.73 M/mcL (4.19-5.50); Red Cell Distribution Width 18.1 % (11.5-14.5); Segmented Neutrophils % 74.5 %; White Blood Count 3.5 K/mcL (4.3-11.1)
[2021-06-21 02:23] LABS: BUN/Creatinine Ratio 21 (6-26); Blood Urea Nitrogen 27 mg/dL (8-23); Calcium 7.8 mg/dL (8.6-10.3); Carbon Dioxide 27 mEq/L (23-29); Chloride 101 mEq/L (98-107); Glucose 199 mg/dL (70-105); Osmolality,Calculated 291 (280-300); Potassium 4.1 mEq/L (3.5-5.1); Sodium 135 mEq/L (136-145); eGFR For African Americans > 60 (> 60); eGFR For Non-African Americans 55 (> 60)
[2021-06-21] MEDS: *HR* OxyCODONE Immed Rel 5 MG TABLET PO PRN (06:41)
[2021-06-21] MEDS: Gabapentin 100 MG CAPSULE PO SCH ×3 (08:11→21:11)
[2021-06-21] MEDS: rOPINIRole 1 MG TABLET PO SCH ×2 (08:11→21:11)
[2021-06-21] MEDS: Cholecalciferol (D-3) 1,000 UNIT (25MCG) TABLET PO SCH (08:11)
[2021-06-21] MEDS: Renal Vitamin 1 CAP CAPSULE PO SCH (08:11)
[2021-06-21] MEDS: Metoprolol XL (24 HR) Succ 25 MG TAB.ER.24H PO SCH (08:11)
[2021-06-21] MEDS: allopurinoL 100 MG TABLET PO SCH (08:12)
[2021-06-21] MEDS: Famotidine 20 MG TABLET PO SCH (08:12)
[2021-06-21] MEDS: Cefepime HCl 1,000 MG in 0.9 % Sodium Chloride 10 ML IVP SCH (16:06)
[2021-06-21] MEDS ORDERED: Milk and Molasses Enema 200 ML RC ONE (19:30)
[2021-06-21] MEDS: Insulin DETEMIR 100 UNIT/ML X5UNITS SUBQ SCH (21:10)
[2021-06-22 01:14] LABS: Basophils # 0.1 K/mcL (0.0-0.2); Basophils % 1.6 %; Eosinophils % 0.7 %; Hematocrit 27.5 % (37.5-50.1); Hemoglobin 8.7 g/dL (12.9-16.9); Immature Granulocytes % 1.6 % (0-4); Lymphocytes # 0.4 K/mcL (0.6-4.6); Lymphocytes % 8.2 %; Mean Corpuscular HGB Conc 31.6 g/dL (31.6-35.5); Mean Corpuscular Hemoglobin 30.2 pg (28.0-33.3); Mean Corpuscular Volume 95.5 fL (83.0-100.0); Mean Platelet Volume 9.2 fL (9.4-12.4); Monocytes # 0.2 K/mcL (0.0-1.3); Monocytes % 5.3 %; Neutrophils # 3.7 K/mcL (1.6-8.9); Platelet Count 166 K/mcL (140-400); Red Blood Count 2.88 M/mcL (4.19-5.50); Red Cell Distribution Width 18.4 % (11.5-14.5); Segmented Neutrophils % 82.6 %; White Blood Count 4.5 K/mcL (4.3-11.1)
[2021-06-22] MEDS: Insulin LISPRO 300 UNITS/3 ML VIAL SUBQ SCH ×4 (01:17→16:44)
[2021-06-22 01:34] LABS: Calcium 8.2 mg/dL (8.6-10.3); Potassium 4.7 mEq/L (3.5-5.1)
[2021-06-22] MEDS: Gabapentin 100 MG CAPSULE PO SCH ×3 (08:15→21:10)
[2021-06-22] MEDS: Famotidine 20 MG TABLET PO SCH (08:15)
[2021-06-22] MEDS: rOPINIRole 1 MG TABLET PO SCH ×2 (08:15→21:11)
[2021-06-22] MEDS: Cholecalciferol (D-3) 1,000 UNIT (25MCG) TABLET PO SCH (08:15)
[2021-06-22] MEDS: Renal Vitamin 1 CAP CAPSULE PO SCH (08:16)
[2021-06-22] MEDS: Metoprolol XL (24 HR) Succ 25 MG TAB.ER.24H PO SCH (08:16)
[2021-06-22] MEDS: allopurinoL 100 MG TABLET PO SCH (08:16)
[2021-06-22] MEDS: Cefepime HCl 1,000 MG in 0.9 % Sodium Chloride 10 ML IVP SCH (16:44)
[2021-06-22] MEDS: Melatonin 3 MG TABLET PO PRN (21:10)
[2021-06-22] MEDS: Insulin DETEMIR 100 UNIT/ML X5UNITS SUBQ SCH (21:14)
[2021-06-23] MEDS: *HR* Dextrose 50 % in Water (Syg) 50 ML SYRINGE IVP PRN (05:31)
[2021-06-23] MEDS: Insulin LISPRO 300 UNITS/3 ML VIAL SUBQ SCH ×4 (05:34→19:05)
[2021-06-23] MEDS: Nystatin POWDER 30 GM BOTTLE TP SCH ×3 (06:01→14:17)
[2021-06-23 07:28] LABS: Basophils # 0.1 K/mcL (0.0-0.2); Basophils % 1.7 %; Eosinophils % 0.5 %; Hematocrit 26.5 % (37.5-50.1); Hemoglobin 8.5 g/dL (12.9-16.9); Immature Granulocytes % 1.7 % (0-4); Lymphocytes # 0.4 K/mcL (0.6-4.6); Lymphocytes % 10.9 %; Mean Corpuscular HGB Conc 32.1 g/dL (31.6-35.5); Mean Corpuscular Hemoglobin 30.1 pg (28.0-33.3); Mean Platelet Volume 9.2 fL (9.4-12.4); Monocytes # 0.3 K/mcL (0.0-1.3); Monocytes % 7.4 %; Neutrophils # 3.1 K/mcL (1.6-8.9); Platelet Count 155 K/mcL (140-400); Red Blood Count 2.82 M/mcL (4.19-5.50); Red Cell Distribution Width 18.4 % (11.5-14.5); Segmented Neutrophils % 77.8 %
[2021-06-23] MEDS: rOPINIRole 1 MG TABLET PO SCH ×2 (08:31→22:18)
[2021-06-23] MEDS: Renal Vitamin 1 CAP CAPSULE PO SCH (08:31)
[2021-06-23] MEDS: Gabapentin 100 MG CAPSULE PO SCH ×3 (08:32→22:17)
[2021-06-23] MEDS: Metoprolol XL (24 HR) Succ 25 MG TAB.ER.24H PO SCH (08:32)
[2021-06-23] MEDS: Cholecalciferol (D-3) 1,000 UNIT (25MCG) TABLET PO SCH (08:32)
[2021-06-23] MEDS: Famotidine 20 MG TABLET PO SCH (08:32)
[2021-06-23] MEDS: allopurinoL 100 MG TABLET PO SCH (08:32)
[2021-06-23 09:14] LABS: Calcium 8.3 mg/dL (8.6-10.3); Potassium 4.5 mEq/L (3.5-5.1)
[2021-06-23] MEDS ORDERED: 0.9 % Sodium Chloride 250 ML IVC PRN (09:21)
[2021-06-23] MEDS ORDERED: *HR* Heparin 10,000 UNIT/10 ML VIAL IV PRN (09:21)
[2021-06-23] MEDS ORDERED: 0.9 % Sodium Chloride 1,000 ML PRIME SCH (09:30)
[2021-06-23] MEDS: Cefepime HCl 1,000 MG in 0.9 % Sodium Chloride 10 ML IVP SCH (15:20)
[2021-06-23] MEDS: Melatonin 3 MG TABLET PO PRN (22:18)
[2021-06-23] MEDS: Insulin DETEMIR 100 UNIT/ML X5UNITS SUBQ SCH (22:36)
[2021-06-24 02:06] LABS: Basophils # 0.1 K/mcL (0.0-0.2); Eosinophils % 0.9 %; Hematocrit 26.8 % (37.5-50.1); Hemoglobin 8.4 g/dL (12.9-16.9); Immature Granulocytes % 1.4 % (0-4); Lymphocytes # 0.4 K/mcL (0.6-4.6); Lymphocytes % 8.8 %; Mean Corpuscular HGB Conc 31.3 g/dL (31.6-35.5); Mean Corpuscular Hemoglobin 29.5 pg (28.0-33.3); Mean Platelet Volume 9.6 fL (9.4-12.4); Monocytes # 0.4 K/mcL (0.0-1.3); Monocytes % 8.1 %; Neutrophils # 3.5 K/mcL (1.6-8.9); Platelet Count 153 K/mcL (140-400); Red Blood Count 2.85 M/mcL (4.19-5.50); Red Cell Distribution Width 18.3 % (11.5-14.5); Segmented Neutrophils % 78.8 %; White Blood Count 4.4 K/mcL (4.3-11.1)
[2021-06-24 02:28] LABS: Calcium 8.1 mg/dL (8.6-10.3); Potassium 4.8 mEq/L (3.5-5.1)
[2021-06-24] MEDS: Nystatin POWDER 30 GM BOTTLE TP SCH ×4 (05:19→21:18)
[2021-06-24] MEDS: Insulin LISPRO 300 UNITS/3 ML VIAL SUBQ SCH ×4 (05:20→18:07)
[2021-06-24] MEDS ORDERED: 0.9 % Sodium Chloride 250 ML IVC PRN (08:08)
[2021-06-24] MEDS ORDERED: *HR* Midazolam HCl 2 MG/2 ML VIAL IVP ONE (08:55)
[2021-06-24] MEDS ORDERED: *HR* FentaNYL (PF) 100 MCG/2 ML VIAL IVP ONE (08:55)
[2021-06-24] MEDS: Metoprolol XL (24 HR) Succ 25 MG TAB.ER.24H PO SCH (09:22)
[2021-06-24] MEDS ORDERED: Heparin 1,000 UNITS/500 mL 500 ML ONE (09:36)
[2021-06-24] MEDS ORDERED: Moderna Covid-19 Vaccine 100MCG/0.5mL IM ONE (10:43)
[2021-06-24] MEDS: Famotidine 20 MG TABLET PO SCH (11:22)
[2021-06-24] MEDS: rOPINIRole 1 MG TABLET PO SCH ×2 (11:23→21:18)
[2021-06-24] MEDS: Renal Vitamin 1 CAP CAPSULE PO SCH (11:23)
[2021-06-24] MEDS: Gabapentin 100 MG CAPSULE PO SCH ×3 (11:23→21:17)
[2021-06-24] MEDS: Cholecalciferol (D-3) 1,000 UNIT (25MCG) TABLET PO SCH (11:23)
[2021-06-24] MEDS: allopurinoL 100 MG TABLET PO SCH (11:23)
[2021-06-24 12:45] LABS: Influenza A PCR Negative (Negative); Influenza B PCR Negative (Negative); Resp. Syncytial Virus PCR Negative (Negative); SARS-CoV-2 by PCR (In House) Negative (Negative)
[2021-06-24] MEDS: Cefepime HCl 1,000 MG in 0.9 % Sodium Chloride 10 ML IVP SCH (15:50)
[2021-06-24] MEDS: Insulin DETEMIR 100 UNIT/ML X5UNITS SUBQ SCH (21:18)
[2021-06-25] MEDS: Insulin LISPRO 300 UNITS/3 ML VIAL SUBQ SCH ×3 (02:29→13:51)
[2021-06-25] MEDS: *HR* Dextrose 50 % in Water (Syg) 50 ML SYRINGE IVP PRN ×2 (04:31→05:54)
[2021-06-25] MEDS ORDERED: Heparin 1,000 UNITS/500 mL 500 ML ONE (08:09)
[2021-06-25 08:11] LABS: Basophils # 0.1 K/mcL (0.0-0.2); Basophils % 1.9 %; Eosinophils % 0.4 %; Hematocrit 27.4 % (37.5-50.1); Hemoglobin 8.8 g/dL (12.9-16.9); Immature Granulocytes % 1.5 % (0-4); Lymphocytes # 0.5 K/mcL (0.6-4.6); Lymphocytes % 8.5 %; Mean Corpuscular HGB Conc 32.1 g/dL (31.6-35.5); Mean Corpuscular Hemoglobin 30.1 pg (28.0-33.3); Mean Corpuscular Volume 93.8 fL (83.0-100.0); Mean Platelet Volume 9.5 fL (9.4-12.4); Monocytes # 0.4 K/mcL (0.0-1.3); Monocytes % 6.8 %; Neutrophils # 4.3 K/mcL (1.6-8.9); Platelet Count 139 K/mcL (140-400); Red Blood Count 2.92 M/mcL (4.19-5.50); Red Cell Distribution Width 18.6 % (11.5-14.5); Segmented Neutrophils % 80.9 %; White Blood Count 5.3 K/mcL (4.3-11.1)
[2021-06-25 08:33] LABS: Calcium 8.1 mg/dL (8.6-10.3); Potassium 4.7 mEq/L (3.5-5.1)
[2021-06-25] MEDS ORDERED: *HR* Heparin 5,000 UNIT/ML VIAL ONE (08:34)
[2021-06-25] MEDS ORDERED: *HR* Heparin 10,000 UNIT/10 ML VIAL IV PRN (09:09)
[2021-06-25] MEDS ORDERED: 0.9 % Sodium Chloride 250 ML IVC PRN (09:09)
[2021-06-25] MEDS: rOPINIRole 1 MG TABLET PO SCH (13:30)
[2021-06-25] MEDS: Famotidine 20 MG TABLET PO SCH (13:30)
[2021-06-25] MEDS: Metoprolol XL (24 HR) Succ 25 MG TAB.ER.24H PO SCH (13:30)
[2021-06-25] MEDS: Renal Vitamin 1 CAP CAPSULE PO SCH (13:30)
[2021-06-25] MEDS: Cholecalciferol (D-3) 1,000 UNIT (25MCG) TABLET PO SCH (13:30)
[2021-06-25] MEDS: Gabapentin 100 MG CAPSULE PO SCH ×2 (13:31→15:35)
[2021-06-25] MEDS: allopurinoL 100 MG TABLET PO SCH (13:32)
[2021-06-25] MEDS: Nystatin POWDER 30 GM BOTTLE TP SCH ×2 (13:32→15:36)
[2021-06-25 13:48] VITALS: BP 138/82; PULSE 94; TEMP 97.8; O2SAT 94
[2021-06-25] MEDS: Cefepime HCl 1,000 MG in 0.9 % Sodium Chloride 10 ML IVP SCH (16:12)
== END 2021-06-25 17:04 | DRG 638 ==
LOC: 2ANU → SUATTDRO 19:14
PROVIDERS: ADMIT Internal Medicine; ATTEND Family Medicine
PROC: IRPERMA (2021-06-25 08:00)